=== PATIENT | female | born 1955 | race Caucasian/White ===

== ENCOUNTER → 2017-04-26 | Outpatient (CLI) | payer OTHER ==
--- NOTE | 2017-04-27 13:59 | MAMMOGRAPHY REPORT ---
BILATERAL DIGITAL SCREENING MAMMOGRAM TOMOSYNTHESIS WITH CAD: 04/26/2017 CLINICAL HISTORY: Routine screening. Patient has no complaints. TECHNIQUE: Breast tomosynthesis in addition to standard 2D mammography was performed. Current study was also evaluated with a Computer Aided Detection (CAD) system. COMPARISON: Comparison is made to exams dated: 04/24/2015 mammogram, 04/23/2014 mammogram, 12/20/2011 [facility], 07/29/2008, and 03/28/2007. BREAST COMPOSITION: There are scattered areas of fibroglandular density in both breasts. FINDINGS: There are stable benign coarse calcifications in the right breast. No suspicious mass, arc hitectural distortion or cluster of suspicious microcalcifications is seen. IMPRESSION: ACR BI-RADS CATEGORY 1: NEGATIVE There is no mammographic evidence of malignancy. A 1 year screening mammogram is recommended. The pa tient will receive written notification of the results. Approximately 10% of breast cancers are not detected with mammography. A negative mammographic report should not delay biopsy if a clinically suggestive mass is present. Celine Khan M.D. ay/:04/26/2017 15:25:41 Credit Control Administrator: Lilly Min, M, [facility] letter sent: Normal 1/2 BI-RADS Code: ACR BI-RADS Category 1: Negative
== END | disposition home or self-care (01) ==
LOC: C.MAMM 13:23
PROVIDERS: ATTEND Obstetrics & Gynecology
DX: Z12.31 Encounter for screening mammogram for malignant neoplasm of breast (principal)

== ENCOUNTER → 2017-07-26 | Outpatient (CLI) | payer OTHER ==
[2017-07-26 17:38] LABS: BASO % 0.4 %; BASO ABS # 0.03 K/uL (0-0.2); EOS % 0.9 %; EOS ABS # 0.08 K/uL (0-0.5); HEMATOCRIT 38.8 % (37-47); HEMOGLOBIN 13.3 g/dL (12.0-16.0); IG# 0.02 K/uL (0.00-0.02); LYMPH % 24.3 %; LYMPH ABS # 2.05 K/uL (1.2-3.4); MEAN CELL VOLUME 91.9 fL (80-100); MEAN CORPUSCULAR HEMOGLOBIN 31.5 pg (25-34); MEAN CORPUSCULAR HGB CONC 34.3 g/dl (32-36); MEAN PLATELET VOLUME 10.4 fL (7.4-10.4); MONO % 5.5 %; MONO ABS # 0.46 K/uL (0.11-0.59); NEUT % 68.7 %; NEUT ABS # 5.79 K/uL (1.4-6.5); PLATELET COUNT 291 K/uL (130-400); RED CELL DISTRIBUTION WIDTH CV 13.5 % (11.5-14.5); RED CELL DISTRIBUTION WIDTH SD 45.2 fL (36.4-46.3); WHITE BLOOD COUNT 8.43 K/uL (4.8-10.8)
[2017-07-26 18:26] LABS: ALBUMIN 3.7 gm/dl (3.4-5.0); ALT/SGPT 23 U/L (12-78); AST/SGOT 14 U/L (15-37); BLOOD UREA NITROGEN 15 mg/dl (7-18); CALCIUM 8.4 mg/dl (8.5-10.1); CARBON DIOXIDE 26 mmol/L (21-32); CREATININE 0.58 mg/dl (0.60-1.20); GLUCOSE 86 mg/dl (70-99); POTASSIUM 3.4 mmol/L (3.5-5.1); SODIUM 139 mmol/L (136-145)
[2017-07-26 18:35] LABS: ALKALINE PHOSPHATASE 85 U/L (45-117); CHOLESTEROL 208 mg/dl (0-200); LDL CHOLESTEROL CALCULATED 128 mg/dl; TOTAL PROTEIN 7.6 gm/dl (6.4-8.2)
== END | disposition home or self-care (01) ==
LOC: C.LABBFT 14:58
PROVIDERS: ATTEND Physician Assistant Medical
DX: M85.80 Other specified disorders of bone density and structure, unspecified site (principal); R63.5 Abnormal weight gain

== ENCOUNTER → 2017-08-05 | Outpatient (CLI) | payer OTHER ==
--- NOTE | 2017-08-05 12:18 | DIAGNOSTIC IMAGING REPORT ---
CT LUNG SCREENING, LOW DOSE WITH COMPUTER-AIDED DETECTION (CAD) CLINICAL HISTORY: PERSONAL HX OF TOBACCO USE COMPARISON STUDY: No previous studies for comparison. CT DOSE: 74.81 mGycm TECHNIQUE: Low-dose helical CT was acquired without intravenous contrast from lung apices to bases and reconstructed at 2.5 mm every 2 mm. CAD was utilized for this study. A dose lowering technique was utilized adhering to the principles of ALARA. FINDINGS: The central airways are patent. No pleural effusions. No pneumothorax. Small bibasilar densities favor subsegmental atelectasis. Mild emphysema. There are approximately 7 scattered subcentimeter indeterminate pulmonary nodule seen primarily within the lung bases. Dominant nodule within the right middle lobe on image 111 of 153 and is described below. Small fat-containing left-sided Bochdalek hernia. No mediastinal or hilar lymphadenopathy. Normal caliber thoracic aorta. No significant coronary artery calcification. The visualized unenhanced liver, spleen, and adrenal glands are unremarkable. Nodule 1 Category: 2 Nodule 1 Status: Baseline Nodule 1 Description: Solid Nodule 1 Lesion ID: 1 Nodule 1 Slice Number: 43 Nodule 1 Volume (mm3): 56 Nodule 1 Major Streeter mm: 5.0 Nodule 1 Minor Streeter mm: 5.0 IMPRESSION: Approximately 7 scattered subcentimeter pulmonary nodules seen predominantly within the lung bases. Recommend follow-up as described below. CAD FINDINGS: Overall Lung RADS Category: 2 Lung RADS Management Recommendation: Continue annual lung cancer screening. Lung RADS Follow Up Date: 2018-08-05 Lung RADS Nodule ID: 1 Electronically signed by: Solis iTlley M.D. 08/05/2017 12:16 PM Dictated Date/Time: 08/05/2017 12:06 PM
== END | disposition home or self-care (01) ==
LOC: C.CTS 11:42
PROVIDERS: ATTEND Internal Medicine
DX: Z87.891 Personal history of nicotine dependence (principal); R91.8 Other nonspecific abnormal finding of lung field

== ENCOUNTER → 2017-10-12 | Outpatient (CLI) | payer OTHER ==
[2017-10-12 17:37] LABS: HEMATOCRIT 38.5 % (37-47); HEMOGLOBIN 12.9 g/dL (12.0-16.0); MEAN CELL VOLUME 93.2 fL (80-100); MEAN CORPUSCULAR HEMOGLOBIN 31.2 pg (25-34); MEAN CORPUSCULAR HGB CONC 33.5 g/dl (32-36); MEAN PLATELET VOLUME 11.1 fL (7.4-10.4); PLATELET COUNT 266 K/uL (130-400); RED CELL DISTRIBUTION WIDTH CV 13.3 % (11.5-14.5); RED CELL DISTRIBUTION WIDTH SD 45.7 fL (36.4-46.3); WHITE BLOOD COUNT 8.29 K/uL (4.8-10.8)
[2017-10-12 17:39] LABS: ALBUMIN 3.6 gm/dl (3.4-5.0); ALKALINE PHOSPHATASE 75 U/L (45-117); ALT/SGPT 24 U/L (12-78); AST/SGOT 17 U/L (15-37); BLOOD UREA NITROGEN 12 mg/dl (7-18); CALCIUM 8.6 mg/dl (8.5-10.1); CARBON DIOXIDE 29 mmol/L (21-32); CREATININE 0.63 mg/dl (0.60-1.20); GLUCOSE 96 mg/dl (70-99); POTASSIUM 3.8 mmol/L (3.5-5.1); SODIUM 141 mmol/L (136-145); TOTAL PROTEIN 6.8 gm/dl (6.4-8.2)
[2017-10-12 18:24] LABS: BASO % 0.6 %; BASO ABS # 0.05 K/uL (0-0.2); EOS % 1.6 %; EOS ABS # 0.13 K/uL (0-0.5); IG# 0.05 K/uL (0.00-0.02); LYMPH % 34.6 %; LYMPH ABS # 2.87 K/uL (1.2-3.4); MONO % 6.8 %; MONO ABS # 0.56 K/uL (0.11-0.59); NEUT % 55.8 %; NEUT ABS # 4.63 K/uL (1.4-6.5)
== END | disposition home or self-care (01) ==
LOC: C.LABBFT 14:15
PROVIDERS: ATTEND Nurse Practitioner
DX: R19.7 Diarrhea, unspecified (principal)

== ENCOUNTER → 2017-10-13 | Outpatient (CLI) | payer OTHER | END | disposition home or self-care (01) | LOC: C.LABBFT 11:30 | PROVIDERS: ATTEND Nurse Practitioner | DX: R19.7 Diarrhea, unspecified (principal) ==

== ENCOUNTER 2019-12-06 05:22 | Observation (INO) ==
--- NOTE | 2019-11-19 15:50 | PAT Medication Instructions ---
Medication Instructions Date of Service November 19, 2019 Home Medications Medication Instructions Recorded fluoxetine 40 mg capsule 40 mg PO QAM #90 cap 08/31/19 ascorbic acid (vitamin C) [Vitamin C] 1 g PO DAILY calcium phosphate-vitamin D3 [Citracal + D3 (calcium phos)] 2 tab PO DAILY coQ10 (ubiquinol) 400 mg PO DAILY Centrum Silver Women] 1 tab PO DAILY fluoxetine 40 mg capsule 40 mg PO QAM STOP taking 2 weeks before surgery (or as soon as possible if surgery is within 2 weeks) coQ10 (ubiquinol) 400 mg PO DAILY DO NOT take the morning of surgery ascorbic acid (vitamin C) [Vitamin C] 1 g PO DAILY calcium phosphate-vitamin D3 [Citracal + D3 (calcium phos)] 2 tab PO DAILY Centrum Silver Women] 1 tab PO DAILY Take morning of surgery With a small sip of water, OTHERWISE NOTHING TO EAT OR DRINK AFTER MIDNIGHT: fluoxetine 40 mg capsule 40 mg PO QAM Other Notes If you have any questions please call us at [phone] or [phone] or [phone] or [phone]
--- NOTE | 2019-11-20 14:46 | Anesthesiology Consultation ---
Date of Service November 20, 2019 Assessment & Plan (1) Encounter for pre-operative examination: - PCP office visit: 11/20/19: "Patient here for preop clearance for right AGNES scheduled on 12/06/19. Her health has been good. She is clinically stable. compli ant with medications. She will have preop testing done later today. Will review preop testing before clearing her for surgery." Awaiting final PCP clearance ([facility]). - Per assessment on 11/19: Travel screen negative. No known COVID-19 positive contacts or current COVID-19 related symptoms. Surgeon arranging preop COVID testing. Awaiting results. Chart Review Chart Review: Patient seen in Pre Admission Testing Teaching & Discussion Pre-Anesthesia Teaching/Discussion Notes: Instructed NPO after midnight before surgery,except medications with 15 cc of water. Medication instructions provided according to the PAT guidelines. History Surgery Operation Date: 12/06/19 07:15 Proposed Procedures p Right Total Hip Arthroplasty - Aram Schwartz MD Height/Weight Height: 5 ft 8 in Weight: 80.3 kg Allergies Allergy/AdvReac Type Severity Reaction Status Date / Time med Allergy Intermediate nausea, Verified 11/20/19 15:42 headache Sulfa (Sulfonamide Allergy Intermediate nausea, Verified 11/20/19 15:42 Antibiotics) headache venlafaxine [From Effexor] AdvReac Intermediate difficulty Verified 11/20/19 15:42 concentrating, loss of focus Medications Home Medications Medication Instructions Recorded Confirmed Last Taken ascorbic acid (vitamin C) [Vitamin 1 g PO DAILY 06/13/19 11/20/19 Unknown C] calcium phosphate-vitamin D3 2 tab PO DAILY 06/13/19 11/20/19 Unknown [Citracal + D3 (calcium phos)] coQ10 (ubiquinol) 400 mg PO DAILY 06/13/19 11/20/19 Unknown aoreqsst-rnm-pgut-FA-lutein 1 tab PO DAILY 06/13/19 11/20/19 Unknown [Centrum Silver Women] fluoxetine 40 mg capsule 40 mg PO QAM #90 cap 08/31/19 11/20/19 Unknown Past Medical History Medical History Anxiety Osteoarthritis Exercise / Class Metabolic Activity II 4-5 Yardwork/Stairs/Walk up hill (one flight of stairs (no chest pain/no sob)) Past Family History Family History Father Colon cancer Brother Polyp of sigmoid colon Mother CKD (chronic kidney disease) Sister Seizures Past Surgical History Surgical History H/O laparoscopy R/T FERTILITY PROBLEMS History of section History of colonoscopy History of surgery on wrist LEFT/RT FX WRIST REPAIR History of tonsillectomy and adenoidectomy Hx of abdominal surgery D/T ECTOPIC Uterine fibroid [place] teeth removed Past Anesthesia History No Family Hx of Anesthesia Complications and Other (awareness with colonoscopy, no similar issues with other surgeries/anesthesia) History of PONV No Hx of PONV and No Hx of Motion Sickness Social History Smoking Status: Former smoker tobacco type: cigarettes Do You Dip or Chew Tobacco: No Smoking End Date: Quit 2013 (hx 20 cigarettes/day x 30+ years) Hx Alcohol Use: No (Recovering alcoholic, 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 Physical Exam Vital Signs VITALS BP 110/73 P 68 TEMP 98.3 SP02 96%RA RESP 16 PHYSICAL Full neck and c-spine range of motion. Full TMJ range of motion. TMD 3 finger breaths Mallampati Score 2 Dentition: intact, + implant/+ crown (upper side teeth) Lungs: clear throughout to auscultation Cardiac: regular rate and rhythm, no murmurs noted Spine: normal Carotid arteries: negative bruit Extremities: no edema Testing Laboratory Results 11/20/19 15:22 11/20/19 15:22 PT 10.5 Seconds (9.0-12.0) 11/20/19 15: INR 1.0 (0.9-1.1) 11/20/19 15: Hemoglobin A1c 5.5 % (4.5-5.6) 11/20/19 15:22 Urine Color Yellow 11/20/19 Unknown Urine Appearance Clear (Clear) 11/20/19 Unknown Urine pH 6.0 (4.5-7.5) 11/20/19 Unknown Ur Specific [place] 1.018 (1.000-1.030) 11/20/19 Unknown Urine Protein Negative (Negative) 11/20/19 Unknown Urine Glucose (UA) Negative (Negative) 11/20/19 Unknown Urine Ketones Negative (Negative) 11/20/19 Unknown Urine Nitrite Negative (Negative) 11/20/19 Unknown Ur Leukocyte Esterase 2+ (Negative) H 11/20/19 Unknown Urine WBC (Auto) 5-10 /hpf (0-5) H 11/20/19 Unknown Urine RBC (Auto) 0-4 /hpf (0-4) 11/20/19 Unknown U Hyaline Cast (Auto) 1-5 /lpf (0-5) 11/20/19 Unknown U Epithel Cells (Auto) >30 /lpf (0-5) H 11/20/19 Unknown Urine Bacteria (Auto) Negative (Negative) 11/20/19 Unknown Blood Type A Positive 11/20/19 15:22 Antibody Screen NEGATIVE 11/20/19 15:22 Electrocardiogram Date: 11/20/19 NSR at 63bpm. NS TWA.
[2019-11-20 16:01] LABS: Basophils # (auto) 0.03 K/uL (0-0.2); Basophils % (auto) 0.4 %; Eosinophils # (auto) 0.12 K/uL (0-0.5); Eosinophils % (auto) 1.5 %; Hematocrit (blood only) 39.3 % (37-47); Hemoglobin 13.4 g/dL (12.0-16.0); Immature Granulocytes # (auto) 0.02 K/uL (0.00-0.02); Immature Granulocytes % (auto) 0.3 %; Lymphocytes # (auto) 2.14 K/uL (1.2-3.4); Lymphocytes % (auto) 27.5 %; Mean Corpuscular Hgb Conc 34.1 g/dL (32-36); Mean Corpuscular Volume 93.8 fL (80-100); Mean Platelet Volume 10.5 fL (7.4-10.4); Monocytes # (auto) 0.42 K/uL (0.11-0.59); Monocytes % (auto) 5.4 %; Neutrophils # (auto) 5.04 K/uL (1.4-6.5); Neutrophils % (auto) 64.9 %; Platelet Count 277 K/uL (130-400); RDW Coefficient of Variation 12.9 % (11.5-14.5); RDW Standard Deviation 44.5 fL (36.4-46.3); Red Blood Count 4.19 M/uL (4.2-5.4); White Blood Count 7.77 K/uL (4.8-10.8)
[2019-11-20 16:03] LABS: Appearance Urine Clear (Clear); Bacteria Urine Automated Negative (Negative); Bilirubin Urine Negative (Negative); Blood Urine Negative (Negative); Color Urine Yellow; Epithelial Cell Urine Auto >30 /lpf (0-5); Glucose Urine UA Negative (Negative); Ketones Urine Negative (Negative); Leukocyte Esterase Urine 2+ (Negative); Nitrite Urine Negative (Negative); Protein Urine Negative (Negative); RBC Urine Automated 0-4 /hpf (0-4); Specific Gravity Urine 1.018 (1.000-1.030); Urobilinogen Urine Negative (Negative)
[2019-11-20 16:09] LABS: Prothrombin Time 10.5 Seconds (9.0-12.0)
[2019-11-20 16:12] LABS: Potassium 3.7 mmol/L (3.5-5.1)
[2019-11-20 16:13] LABS: BUN Creatinine Ratio 28.1 (10-20); Calcium 9.8 mg/dl (8.5-10.1); Creatinine Clr Calc Pharmacy 98.5 ml/min; Est GFR (African American) 109.5; Est GFR (Non-African American) 94.5
--- NOTE | 2019-11-21 06:05 | Electrocardiogram Report ---
Test Reason : Blood Pressure : / mmHG Vent. Rate : 063 BPM Atrial Rate : 063 BPM P-R Int : 136 ms QRS Dur : 096 ms QT Int : 418 ms P-R-T Axes : 063 070 083 degrees QTc Int : 427 ms Normal sinus rhythm Nonspecific T wave abnormality Abnormal ECG No previous ECGs available Confirmed by Rene Feliciano ([id number]) on 11/21/2019 6:05:04 AM Referred By: Aram Schwartz Confirmed By:Rene Feliciano
[2019-11-21 09:33] LABS: Estimated Average Glucose 111 mg/dl; Hemoglobin A1C 5.5 % (4.5-5.6)
--- NOTE | 2019-11-22 13:30 | History & Physical Report ---
Date of Service November 22, 2019 Assessment & Plan (1) Osteoarthritis of right hip: PRE-OP Diagnosis: Right hip osteoarthritis Planned Procedure: Right total hip arthroplasty Plan: Patient is scheduled to undergo this procedure at the [facility] with Dr. Aram Schwartz on December 06, 2019. Risks and complications of the procedure such as: Infection, bleeding, pain, scarring, nerve and blood vessel damage, weakness, wound problems, incomplete relief of symptoms, stiffness, hardware failure, hardware loosening, wear, fracture, tendon or ligament injury, dislocation, leg length inequality, blood clots, embolism, heart attack, stroke and were explained the patient had a visit today by Dr. Schwartz. Informed consent form of the procedure was obtained. Patient also understands the risks of proceeding with surgical intervention during COVID-19 pandemic. Patient is currently asymptomatic and understands that she will be tested prior to the procedure. Patient states she met with her primary care provider Dr. Moody's ANIRUDH this morning, and received preoperative clearance. She is scheduled to meet with anesthesia after her appointment in our clinic today. While at the hospital she will obtain a CBC with differential, complete metabolic panel, PT/INR, blood type and screen, urinalysis, urine culture and sensitivity, EKG, hemoglobin A1c and a nasal culture for MRSA. During her appointment today we discussed total hip precautions, we went over the total hip packet, talked about discharge planning, antibiotic use following total joint surgery, purchasing a hip kit and obtaining a walker, complaining raised toilet seats in her bathrooms, we also talked about lectures offered by [facility] via zoom. I advised patient she will be discharged from the hospital on oral pain and anti-inflammatory medication as well as aspirin for DVT prophylaxis. Patient will be scheduled for 2-week postoperative follow-up with Aparna Sotomayor PA-C on December 25, 2019 at 1045. Patient verbalized understanding of all information provided during today's visit. She thanked us for the care that she received. Patient states she has questions or concerns prior to her surgery, she will contact clinic. History of Present Illness Chief Complaint: Right Hip Pain Primary Care Provider: Pancho Moody MD History of Present Illness (including history relevant to procedure): This 64-year-old female presents the clinic today for preoperative history and physical. Patient has a longstanding history of bilateral hip pain with the right being greater than that of the left. Patient states this is been ongoing for the past 10 to 12 years and over the past several months has become persiste nt. Patient refers most of her pain to the anterior groin of the right hip. Pain is exacerbated when transitioning from a seated to a standing position. She states that at times it does affect her gait and as well as her activities of daily living. Patient states she uses Advil to control her pain which is only minimally effective. Patient states that it is time to have her issue dealt with surgically. 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 She denies tobacco or illicit drug use Family history: Cancer Current Home Meds: (Last Updated 11/19 13:54) and vitamin D combination (Caltrate 600 + D) 1 tab PO Daily(FLUoxetine 40 mg oral capsule) 40 mg PO Daily multivitamin 1 tab PO Daily(CoQ10) Initial Wt: 11/19 80.3 kg 177 lb Allergies Allergy/AdvReac Type Severity Reaction Status Date / Time med Allergy Intermediate nausea, Verified 11/20/19 15:42 headache Sulfa (Sulfonamide Allergy Intermediate nausea, Verified 11/20/19 15:42 Antibiotics) headache venlafaxine [From Effexor] AdvReac Intermediate difficulty Verified 11/20/19 15:42 concentrating, loss of focus Home Medications Home Medications Medication Instructions Recorded Confirmed Type ascorbic acid (vitamin C) [Vitamin 1 g PO DAILY 06/13/19 11/20/19 History C] calcium phosphate-vitamin D3 2 tab PO DAILY 06/13/19 11/20/19 History [Citracal + D3 (calcium phos)] coQ10 (ubiquinol) 400 mg PO DAILY 06/13/19 11/20/19 History bmvmcokp-mjk-kzml-FA-lutein 1 tab PO DAILY 06/13/19 11/20/19 History [Centrum Silver Women] fluoxetine 40 mg capsule 40 mg PO QAM #90 cap 08/31/19 11/20/19 Rx Past Med/Surg History Medical History Anxiety Osteoarthritis Surgical History H/O laparoscopy R/T FERTILITY PROBLEMS History of section History of colonoscopy History of surgery on wrist LEFT/RT FX WRIST REPAIR History of tonsillectomy and adenoidectomy Hx of abdominal surgery D/T ECTOPIC Uterine fibroid [place] teeth removed Family History Father Colon cancer Brother Polyp of sigmoid colon Mother CKD (chronic kidney disease) Sister Seizures Social History Smoking Status: Former smoker Smoking End Date: Quit 2013 (hx 20 cigarettes/day x 30+ years); Second Hand Exposure: Yes; Do You Dip or Chew Tobacco: No; Tobacco Cessation Education Requested by Patient: No Hx Alcohol Use: No (Recovering alcoholic, 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) Hx Substance Use: No Preferred Language: [place] Communication Ability: Effective [employer]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 Extraocular movements are intact Neck: Deferred due to COVID-19 precautions Cardiac: Regular rate and rhythm with no murmurs or gallops appreciated Lungs: Clear to auscultation throughout with no wheezing, rales or rhonchi Abdomen: Nonobese, nondistended, nontender with normal active bowel sounds Extremities: She has limited range of motion of the right hip compared with the left with flexion to 85 degrees, external rotation of 35 degrees and internal rotation of -15 degrees. She has a positive Stinchfield test. No tenderness over the greater trochanter. Distally neurovascularly intact with palpable pulses. Neuro: Cranial nerves II through XII are intact no motor or sensory deficit Skin: Normal in appearance with no open skin areas or discharge Results & Data ([facility]) Laboratory Results Lab Results 11/20/19 11/20/19 11/20/19 Range/Units 15:22 15:22 15:22 WBC 7.77 (4.8-10.8) K/uL RBC 4.19 L (4.2-5.4) M/uL Hgb 13.4 (12.0-16.0) g/dL Hct 39.3 (37-47) % MCV 93.8 (80-100) fL MCH 32.0 (25-34) pg MCHC 34.1 (32-36) g/dL RDW Std Deviation 44.5 (36.4-46.3) fL RDW Coeff of Diana 12.9 (11.5-14.5) % Plt Count 277 (130-400) K/uL MPV 10.5 H (7.4-10.4) fL Immature Gran % (Auto) 0.3 % Neut % (Auto) 64.9 % Lymph % (Auto) 27.5 % [place] % (Auto) 5.4 % Eos % (Auto) 1.5 % Baso % (Auto) 0.4 % Neut # (Auto) 5.04 (1.4-6.5) K/uL Lymph # (Auto) 2.14 (1.2-3.4) K/uL [place] # (Auto) 0.42 (0.11-0.59) K/uL Eos # (Auto) 0.12 (0-0.5) K/uL Baso # (Auto) 0.03 (0-0.2) K/uL Immature Gran # (Auto) 0.02 (0.00-0.02) K/uL PT 10.5 (9.0-12.0) Seconds INR 1.0 (0.9-1.1) Sodium 140 (136-145) mmol/L Potassium 3.7 (3.5-5.1) mmol/L Chloride 105 (98-107) mmol/L Carbon Dioxide 29 (21-32) mmol/L Anion Gap 6.0 (3-11) BUN 18 (7-18) mg/dl Creatinine 0.65 (0.6-1.2) mg/dl Est Cr Clr Drug Dosing 98.5 ml/min Est GFR ( Amer) 109.5 Est GFR (Non-Af Amer) 94.5 BUN/Creatinine Ratio 28.1 H (10-20) Glucose 92 (70-99) mg/dl Estimat Average Glucose mg/dl Hemoglobin A1c (4.5-5.6) % Calcium 9.8 (8.5-10.1) mg/dl Urine Color Urine Appearance (Clear) Urine pH (4.5-7.5) Ur Specific [place] (1.000-1.030) Urine Protein (Negative) Urine Glucose (UA) (Negative) Urine Ketones (Negative) Urine Blood (Negative) Urine Nitrite (Negative) Urine Bilirubin (Negative) Urine Urobilinogen (Negative) Ur Leukocyte Esterase (Negative) Urine WBC (Auto) (0-5) /hpf Urine RBC (Auto) (0-4) /hpf U Hyaline Cast (Auto) (0-5) /lpf U Epithel Cells (Auto) (0-5) /lpf Urine Bacteria (Auto) (Negative) Nasal Screen MRSA (PCR) (Negative) Blood Type Antibody Screen 11/20/19 11/20/19 11/20/19 Range/Units 15:22 15:22 Unknown WBC (4.8-10.8) K/uL RBC (4.2-5.4) M/uL Hgb (12.0-16.0) g/dL Hct (37-47) % MCV (80-100) fL MCH (25-34) pg MCHC (32-36) g/dL RDW Std Deviation (36.4-46.3) fL RDW Coeff of Diana (11.5-14.5) % Plt Count (130-400) K/uL MPV (7.4-10.4) fL Immature Gran % (Auto) % Neut % (Auto) % Lymph % (Auto) % [place] % (Auto) % Eos % (Auto) % Baso % (Auto) % Neut # (Auto) (1.4-6.5) K/uL Lymph # (Auto) (1.2-3.4) K/uL [place] # (Auto) (0.11-0.59) K/uL Eos # (Auto) (0-0.5) K/uL Baso # (Auto) (0-0.2) K/uL Immature Gran # (Auto) (0.00-0.02) K/uL PT (9.0-12.0) Seconds INR (0.9-1.1) Sodium (136-145) mmol/L Potassium (3.5-5.1) mmol/L Chloride (98-107) mmol/L Carbon Dioxide (21-32) mmol/L Anion Gap (3-11) BUN (7-18) mg/dl Creatinine (0.6-1.2) mg/dl Est Cr Clr Drug Dosing ml/min Est GFR ( Amer) Est GFR (Non-Af Amer) BUN/Creatinine Ratio (10-20) Glucose (70-99) mg/dl Estimat Average Glucose 111 mg/dl Hemoglobin A1c 5.5 (4.5-5.6) % Calcium (8.5-10.1) mg/dl Urine Color Yellow Urine Appearance Clear (Clear) Urine pH 6.0 (4.5-7.5) Ur Specific [place] 1.018 (1.000-1.030) Urine Protein Negative (Negative) Urine Glucose (UA) Negative (Negative) Urine Ketones Negative (Negative) Urine Blood Negative (Negative) Urine Nitrite Negative (Negative) Urine Bilirubin Negative (Negative) Urine Urobilinogen Negative (Negative) Ur Leukocyte Esterase 2+ H (Negative) Urine WBC (Auto) 5-10 H (0-5) /hpf Urine RBC (Auto) 0-4 (0-4) /hpf U Hyaline Cast (Auto) 1-5 (0-5) /lpf U Epithel Cells (Auto) >30 H (0-5) /lpf Urine Bacteria (Auto) Negative (Negative) Nasal Screen MRSA (PCR) (Negative) Blood Type A Positive Antibody Screen NEGATIVE 11/20/19 Range/Units Unknown WBC (4.8-10.8) K/uL RBC (4.2-5.4) M/uL Hgb (12.0-16.0) g/dL Hct (37-47) % MCV (80-100) fL MCH (25-34) pg MCHC (32-36) g/dL RDW Std Deviation (36.4-46.3) fL RDW Coeff of Diana (11.5-14.5) % Plt Count (130-400) K/uL MPV (7.4-10.4) fL Immature Gran % (Auto) % Neut % (Auto) % Lymph % (Auto) % [place] % (Auto) % Eos % (Auto) % Baso % (Auto) % Neut # (Auto) (1.4-6.5) K/uL Lymph # (Auto) (1.2-3.4) K/uL [place] # (Auto) (0.11-0.59) K/uL Eos # (Auto) (0-0.5) K/uL Baso # (Auto) (0-0.2) K/uL Immature Gran # (Auto) (0.00-0.02) K/uL PT (9.0-12.0) Seconds INR (0.9-1.1) Sodium (136-145) mmol/L Potassium (3.5-5.1) mmol/L Chloride (98-107) mmol/L Carbon Dioxide (21-32) mmol/L Anion Gap (3-11) BUN (7-18) mg/dl Creatinine (0.6-1.2) mg/dl Est Cr Clr Drug Dosing ml/min Est GFR ( Amer) Est GFR (Non-Af Amer) BUN/Creatinine Ratio (10-20) Glucose (70-99) mg/dl Estimat Average Glucose mg/dl Hemoglobin A1c (4.5-5.6) % Calcium (8.5-10.1) mg/dl Urine Color Urine Appearance (Clear) Urine pH (4.5-7.5) Ur Specific [place] (1.000-1.030) Urine Protein (Negative) Urine Glucose (UA) (Negative) Urine Ketones (Negative) Urine Blood (Negative) Urine Nitrite (Negative) Urine Bilirubin (Negative) Urine Urobilinogen (Negative) Ur Leukocyte Esterase (Negative) Urine WBC (Auto) (0-5) /hpf Urine RBC (Auto) (0-4) /hpf U Hyaline Cast (Auto) (0-5) /lpf U Epithel Cells (Auto) (0-5) /lpf Urine Bacteria (Auto) (Negative) Nasal Screen MRSA (PCR) Negative (Negative) Blood Type Antibody Screen Diagnostic Findings Studies (relevant to the procedure): X-rays done include AP pelvis, cross-table lateral and false profile view of the right hip. These demonstrate end-stage os teoarthritis of the right hip with near-complete joint space loss, large peripheral osteophytes and subchondral sclerosis.
[2019-12-06] MEDS ORDERED: TRANEXAMIC ACID 1,000 MG **IV Intra-op IV SCH (06:00)
[2019-12-06] MEDS ORDERED: TRAMADOL HCL 50 MG TABLET PO SCH (06:00)
[2019-12-06] MEDS ORDERED: FAMOTIDINE 20 MG TAB PO SCH (06:00)
[2019-12-06] MEDS ORDERED: CEFAZOLIN 2000MG 2,000 MG/15 ML SYR IV SCH (06:00)
[2019-12-06] MEDS ORDERED: dexAMETHasone 4 MG TAB PO SCH (06:00)
[2019-12-06] MEDS ORDERED: METOCLOPRAMIDE HCL 10 MG TABLET PO SCH (06:00)
[2019-12-06] MEDS ORDERED: LR 60ML/HR IV SCH (06:00)
[2019-12-06] MEDS ORDERED: ACETAMINOPHEN 500 MG TAB PO SCH (06:00)
[2019-12-06] MEDS ORDERED: LR 500ML BOLUS, THEN 15ML/HR IV SCH (06:00)
[2019-12-06] MEDS ORDERED: TRANEXAMIC ACID 1,000 MG **IV Pre-op IV SCH (06:00)
[2019-12-06] MEDS ORDERED: ROPIVACAINE 0.5% HCL/PF 150 MG, BUPIVACAINE 0.5% MPF 30 ML, EPINEPHrine 0.15 MG, Ketoro... INFIL SCH (06:00)
[2019-12-06] MEDS ORDERED: BUPIVACAINE 0.5 % 5 MG/1 ML PF 10ML VIAL ONE (06:20)
[2019-12-06] MEDS ORDERED: PROMETHAZINE HCL 12.5 MG in SODIUM CHLORIDE 0.9% 50 ML IV PRN (06:52)
[2019-12-06] MEDS ORDERED: ePHEDrine sulfate 50 MG/ML AMP IV PRN (06:52)
[2019-12-06] MEDS ORDERED: HYDROmorphone INJ 2 MG/ML SYR/VIAL IV PRN (06:52)
[2019-12-06] MEDS ORDERED: fentaNYL citrate 100 MCG/2 ML VIAL IV PRN (06:52)
[2019-12-06] MEDS ORDERED: ATROPINE SULFATE 0.1 MG/ML 10ML SYR IV PRN (06:52)
[2019-12-06] MEDS ORDERED: ONDANSETRON INJ 2 MG/ML 2 ML VIAL IV PRN ×2 (06:52→09:14)
[2019-12-06] MEDS ORDERED: ORTHO JOINT ANESTHETIC ONE (06:52)
[2019-12-06] MEDS ORDERED: fentaNYL citrate 100 MCG/2 ML VIAL ONE (07:02)
[2019-12-06] MEDS ORDERED: MIDAZOLAM HCL 1 MG/ML 2ML VIAL ONE ×2 (07:02→07:39)
--- NOTE | 2019-12-06 07:12 | History & Physical Bridge Note ---
Date of Service December 06, 2019 History & Physical Bridge Note I have examined the patient, reviewed the History & Physical and in the interval since the performance of the History & Physical I have noted the following changes of clinical significance: no changes noted
[2019-12-06] MEDS ORDERED: PROPOFOL IV EMULSION 10 MG/ML 20 ML VIAL IV ONE (07:52)
[2019-12-06] MEDS ORDERED: DEXAMETHASONE SOD INJ 4 MG/ML VIAL ONE (07:52)
[2019-12-06] MEDS ORDERED: ONDANSETRON INJ 2 MG/ML 2 ML VIAL ONE (07:52)
[2019-12-06] MEDS ORDERED: LIDOCAINE HCL 2% 2 ML VIAL/AMP(20MG/ML) INFIL ONE (07:52)
--- NOTE | 2019-12-06 09:08 | Operative Report ---
Post Operative Report Pre & Post Diagnosis Operation Date: 12/06/19 07:15 Pre-Op Diagnosis: Right Hip Osteoarthritis Post-Op Diagnosis: Right Hip Osteoarthritis I identified the patient and participated in the time-out.: Yes Procedure Operation Date: 12/06/19 07:15 Actual Procedures p Right Total Hip Arthroplasty(Right) - Aram Schwartz MD Surgeon Aram Schwartz MD Purchasing/Receiving Artemio Pierre MD and TAMAR Meza PA-C Estimated Blood Loss 100 Findings Consistent with Post-Op Diagnosis Specimens Femoral head Anesthesia Type Spinal MAC Complications none Disposition Accompanied Patient To Recovery: No Disposition: Recovery Room Indications 64-year-old female with right hip pain refractory to conservative management. X-rays demonstrate [id number] arthritis. I had a long discussion with her abo ut risks and benefits of surgery, alternatives to surgery and expected outcomes. After reviewing all these patient elected proceed with surgery. All questions were answered. Informed consent was signed. Description of Procedure Patient was identified in the preoperative holding area and the surgical site, right hip, was marked. A spinal anesthetic was placed, then the patient was brought back to the main operating room, placed in the operating table and moved into the lateral decubitus position. Axillary roll was placed. All bony prominences were padded. Perioperative antibiotics and tranexamic acid 1 gram IV were administered. Operative extremity was prepped and draped in the normal sterile fashion. Prior to incision a multidisciplinary timeout was called. All in the room were in agreement. We began by making an incision for a posterior approach to the hip. We dissected down through subcutaneous tissues to the level of the fascia. The fascia was incised in line with the incision. Charnley bow was placed. The trochanteric bursa was excised. The piriformis and short external rotators were dissected off the posterior aspect of the hip. A box cut was made in the capsule. The femoral head was dislocated. The femoral neck cut was made at our preoperative template. The acetabulum was then exposed. The labrum was sharply excised. Contents of the cotyloid fossa were removed with electrocautery. We then began reaming at a size 8 mm less than our preoperative template. We reamed up by 1 [address] the way up to a size 52 mm cup. This gave us good bleeding cancellus bone circumferentially. The acetabulum was then irrigated out and dried. The real Gillett Gription cup was then impacted down into position with 45 degrees of lateral opening and 25 degrees of anteversion. A single cancellous bone screw was placed up into the ilium. Excellent fixation was obtained. An Altrx polyethylene liner for a 32 mm femoral head was then impacted into the shell. The locking mechanism was checked to ensure that it had engaged which it had. Next we turned our attention to the femur. The lateral neck was removed with a box osteotome. Intramedullary guide was used followed by the lateralizing reamer. We then reamed up to a size 6 [place] stem. We then broached all the way up to a size 6. We began trialing with a high offset neck and a +1 head. Hip was reduced. Leg lengths were symmetric. The hip was stable in extension and external rotation, and stable in the sleeper position. At 90 degrees of hip flexion the hip could be internally rotated 50 degrees before levering out of the cup. I was very happy with the stability exam. Therefore the hip was dislocated and the femoral trial was removed. The femoral canal was irrigated and dried. The real size 6 high offset [place] femoral stem was opened up. This was impacted down into position. It sat at the same level as the femoral trial. Therefore the 32 mm ceramic femoral head with a +1 mm offset was opened up and gently impacted down onto the trunnion. The hip was atraumatically reduced. Another 1 gram of IV tranexamic acid was started prior to closure. The wound was irrigated out with sterile Betadine solution. The periarticular injection cocktail was then placed. The short external rotators, piriformis, and posterior capsule were repaired through drill holes in the greater trochanter using #2 Vicryl. The fascia was run with a looped #1 PDS. The subcutaneous layer was closed with #1 PDS. The dermal layer was closed with 2-0 Vicryl. Zip line was used for the skin followed by a Silverlon dressing. A compressive dressing was then placed. The patient was then rolled supine. Leg lengths were rechecked and were symmetric. An abduction pillow was placed. Sedation was lifted and the patient was transferred to recovery room in stable condition. Summary of implants: Depuy Gillett Gription Acetabular Shell Sector Cup, 52 mm outer diameter Gillett Cancellous bone screw, 6.5 x 35 mm Gillett Altrx Polyethylene Acetabular Liner, Neutral, with a 32 mm inner diameter DePuy [place] Femoral stem with Porocoat, 12/14 taper, size 6 high offset 32 mm ceramic femoral head with +1 offset Postoperative course: Patient will be admitted to the hospital from the recovery room. Patient will be weightbearing as tolerated with posterior hip precautions. Aspirin for DVT prophylaxis I attest to the content of the Intraoperative Record and any orders documented therein. Any exceptions are noted below.
[2019-12-06] MEDS ORDERED: METOCLOPRAMIDE HCL INJ 5 MG/ML 2 ML VIAL IV PRN (09:14)
[2019-12-06] MEDS ORDERED: ALUMINUM/MAGNESIUM SUSP 30 ML UDC PO PRN (09:14)
[2019-12-06] MEDS ORDERED: bisacodyL 10 MG SUPP PR PRN (09:14)
[2019-12-06] MEDS ORDERED: NALOXONE HCL 0.4 MG/1 ML VIAL/CARP IV PRN (09:14)
[2019-12-06] MEDS ORDERED: DiphenhydrAMINE HCL 50 MG/ML VIAL IV PRN (09:14)
[2019-12-06] MEDS ORDERED: MAGNESIUM HYDROXIDE SUSP 30 ML UDC PO PRN (09:14)
--- NOTE | 2019-12-06 09:14 | Operative Report ---
Post Operative Report Pre & Post Diagnosis Operation Date: 12/06/19 07:15 Pre-Op Diagnosis: Right Hip Osteoarthritis Post-Op Diagnosis: Right Hip Osteoarthritis I identified the patient and participated in the time-out.: Yes Procedure Operation Date: 12/06/19 07:15 Actual Procedures p Right Total Hip Arthroplasty(Right) - Aram Schwartz MD Surgeon Aram Schwartz MD [employer] Artemio Pierre MD and TAMAR Meza PA-C Estimated Blood Loss 100 Findings Consistent with Post-Op Diagnosis Specimens femoral head Complications none Disposition Accompanied Patient To Recovery: Yes Disposition: Recovery Room Description of Procedure I was present during the entire case assisting with positioning, prepping, draping, retraction, wound closure and dressing application. Fellow was present and I served as an extra set of hands during the case. Please see Dr. Schwartz procedure note for speciifcs. I attest to the content of the Intraoperative Record and any orders documented therein. Any exceptions are noted below.
--- NOTE | 2019-12-06 09:48 | Anesthesiology Progress Note ---
Date of Service December 06, 2019 Anesthesia Post Procedure Vital Signs Vital Signs: Temp Pulse Pulse Resp BP BP Pulse Ox 12/06/19 09:40 62 14 104/63 99 12/06/19 09:30 61 16 104/58 L 100 12/06/19 09:20 62 14 109/61 100 12/06/19 09:12 36.2 C L 63 16 109/66 100 12/06/19 05:59 36.9 C 76 18 132/70 96 Transfer of Care Handoff Completed per policy Notes Mental Status: alert / awake / arousable and participated in evaluation Patient Amnestic to Procedure: Yes Nausea / Vomiting: adequately controlled Pain: adequately controlled Airway Patency, RR, SpO2: stable & adequate BP & HR: stable & adequate Hydration State: stable & adequate Anesthetic Complications: no major complications apparent and Pt Satisfied with anesthetic care
--- NOTE | 2019-12-06 10:33 | XRay Report ---
XR hip 1V RT w pelvis HISTORY: 64 years-old Female IN PACU - A/P PELVIS and LATERAL HIP right hip total joint arthroplast y COMPARISON: Pelvis radiograph 11/20/2019 TECHNIQUE: AP view the pelvis with crosstable lateral view of the right hip FINDINGS: There is at least moderate left hip osteoarthritis. Right hip total joint arthroplasty demonstrates s atisfactory alignment without acute fracture or expected retained foreign body. Expected postsurgical soft tissue swelling and deep tissue air. Phleboliths of the pelvis. IMPRESSION: Right hip total arthroplasty with expected postoperative changes. ACT 112: Negative or not required by law. The above report was generated using voice recognition software. It may contain grammatical, syntax o r spelling errors. Electronically signed by: Lloyd Pham M.D. 12/06/2019 10:32 AM
[2019-12-06] MEDS ORDERED: IBUPROFEN 200 MG TAB PO PRN (10:36)
--- NOTE | 2019-12-06 11:35 | Operative Report ---
Post Operative Report Pre & Post Diagnosis Operation Date: 12/06/19 07:15 Pre-Op Diagnosis: Right Hip Osteoarthritis Post-Op Diagnosis: Right Hip Osteoarthritis I identified the patient and participated in the time-out.: Yes Procedure Operation Date: 12/06/19 07:15 Actual Procedures p Right Total Hip Arthroplasty(Right) - Aram Schwartz MD Surgeon Aram Mercado MD Cathode Builder Artemio Pierre MD and TAMAR Meza PA-C Estimated Blood Loss 100 Findings Consistent with Post-Op Diagnosis Specimens Femoral head Drains None Anesthesia Type Spinal MAC Complications none Disposition Accompanied Patient To Recovery: Yes Disposition: Recovery Room Indications Severe right hip osteoarthritis Description of Procedure As per doctor Mercado's note I assisted in prepping and draping instruments handling certain parts of the procedure and wound closure I attest to the content of the Intraoperative Record and any orders documented therein. Any exceptions are noted below.
[2019-12-06] MEDS: KETOROLAC TROMETHAMINE 15 MG/ML VIAL IV SCH ×3 (12:55→22:03)
[2019-12-06] MEDS: SODIUM CHLORIDE 0.9% 1000ML 1,000 ML IV SCH ×2 (12:55→22:02)
[2019-12-06] MEDS: ACETAMINOPHEN 500 MG TAB PO SCH ×2 (13:42→22:03)
[2019-12-06] MEDS ORDERED: TRANEXAMIC ACID / 0.7% NACL 1,000 MG/100 ML BAG IV SCH (15:15)
[2019-12-06] MEDS: Scopolamine CHECK PATCH PLACEMENT SCH ×2 (15:21→23:20)
[2019-12-06] MEDS: CEFAZOLIN 2000MG 2,000 MG/15 ML SYR IV SCH ×2 (16:07→23:20)
[2019-12-06] MEDS: OXYCODONE HCL IR 5 MG TAB (IMMEDIATE RELEASE) PO PRN ×2 (16:16→20:11)
[2019-12-06] MEDS: ASPIRIN 81 MG ECTAB PO SCH (20:10)
[2019-12-06] MEDS: DOCUSATE SODIUM 100 MG CAP PO SCH (20:10)
[2019-12-06] MEDS ORDERED: SENNA 8.6 MG TAB PO SCH (21:00)
[2019-12-07] MEDS: ACETAMINOPHEN 500 MG TAB PO SCH (05:57)
[2019-12-07] MEDS: KETOROLAC TROMETHAMINE 15 MG/ML VIAL IV SCH (05:57)
[2019-12-07] MEDS: SODIUM CHLORIDE 0.9% 1000ML 1,000 ML IV SCH (06:01)
[2019-12-07 06:04] LABS: Hematocrit (blood only) 32.3 % (37-47); Hemoglobin 10.5 g/dL (12.0-16.0); Immature Granulocytes # (auto) 0.05 K/uL (0.00-0.02); Immature Granulocytes % (auto) 0.3 %; Lymphocytes # (auto) 0.93 K/uL (1.2-3.4); Lymphocytes % (auto) 5.7 %; Mean Corpuscular Hemoglobin 31.2 pg (25-34); Mean Corpuscular Hgb Conc 32.5 g/dL (32-36); Mean Corpuscular Volume 95.8 fL (80-100); Mean Platelet Volume 10.8 fL (7.4-10.4); Monocytes # (auto) 1.09 K/uL (0.11-0.59); Monocytes % (auto) 6.7 %; Neutrophils # (auto) 14.17 K/uL (1.4-6.5); Neutrophils % (auto) 87.3 %; Platelet Count 233 K/uL (130-400); RDW Coefficient of Variation 13.4 % (11.5-14.5); RDW Standard Deviation 46.6 fL (36.4-46.3); Red Blood Count 3.37 M/uL (4.2-5.4); White Blood Count 16.24 K/uL (4.8-10.8)
[2019-12-07 06:21] LABS: BUN Creatinine Ratio 27.1 (10-20); Calcium 8.5 mg/dl (8.5-10.1); Creatinine Clr Calc Pharmacy 35.3 ml/min; Est GFR (African American) 106.9; Est GFR (Non-African American) 92.2; Potassium 4.4 mmol/L (3.5-5.1)
[2019-12-07] MEDS: Scopolamine CHECK PATCH PLACEMENT SCH (08:00)
[2019-12-07] MEDS ORDERED: dexAMETHasone 4 MG TAB PO SCH (08:00)
[2019-12-07] MEDS: DOCUSATE SODIUM 100 MG CAP PO SCH (08:23)
[2019-12-07] MEDS: ASPIRIN 81 MG ECTAB PO SCH (08:24)
[2019-12-07] MEDS ORDERED: COQ10 PO SCH (09:00)
[2019-12-07] MEDS ORDERED: CALCIUM PHOSPHATE VITAMIN D3 PO SCH (09:00)
[2019-12-07] MEDS ORDERED: MULTIVITAMIN TAB PO SCH (09:00)
[2019-12-07] MEDS ORDERED: NON-FORMULARY MEDICATION (Multivit-Min-Iron-Fa-Lutein [Centrum Silver Women] 1 TAB) PO SCH (09:00)
[2019-12-07] MEDS ORDERED: ASCORBIC ACID 500 MG TAB PO SCH (09:00)
[2019-12-07] MEDS ORDERED: FLUOXETINE HCL 20 MG CAP PO SCH (09:00)
--- NOTE | 2019-12-07 10:43 | Orthopedic Progress Note ---
Date of Service December 07, 2019 Assessment & Plan (1) S/P total hip arthroplasty: WBAT with walker Total hip precautions Keep dressing in place Ice with EZ wrap Abduction pillow use x 6 wks DVT prophy with TEDs and Aspirin Pain control with PO meds Will do own PT at home PT/OT this AM Follow up at [facility] as previously scheduled With questions call: Admission and Anticipated Discharge Date Admission Date: December 06, 2019 Subjective This 64 yo F is day 1 s/p Right Total Hip Arthroplasty. She states that she is doing very well and has had no difficulty transitioning from her bed to chair or ambulating to the bathroom with her walker. She states that she is ready to go home and will do her own PT. Currently she denies CP, SOB, nausea, vomiting, fever, chills, sweats or lethargy. Review of Systems Review of Systems: All systems reviewed & are unremarkable except as noted in Subjective Physical Exam Physical Exam: Right Hip: Dressing clean, dry and intact. Able to depict light sensation to touch circumferentially around silverlon. Able to perform activey SLRT and foot dorsi/plantar flexion. Quad strength 4/5. No pain with light passive log roll, internal and external hip rotation. NV intact in Right LE. Results & Data ([facility]) Vital Signs (Past 12 Hours) Vital Signs Temp Pulse Resp BP Pulse Ox 12/07/19 07:46 36.5 C 75 16 100/59 L 95 12/07/19 03:52 36.9 C 83 14 100/58 L 93 12/07/19 00:02 36.8 C 74 14 102/63 97 Laboratory Results 12/07/19 12/07/19 Range/Units 05:07 05:07 WBC 16.24 H (4.8-10.8) K/uL RBC 3.37 L (4.2-5.4) M/uL Hgb 10.5 L (12.0-16.0) g/dL Hct 32.3 L (37-47) % MCV 95.8 (80-100) fL MCH 31.2 (25-34) pg MCHC 32.5 (32-36) g/dL RDW Std Deviation 46.6 H (36.4-46.3) fL RDW Coeff of Diana 13.4 (11.5-14.5) % Plt Count 233 (130-400) K/uL MPV 10.8 H (7.4-10.4) fL Immature Gran % (Auto) 0.3 % Neut % (Auto) 87.3 % Lymph % (Auto) 5.7 % Sullivan % (Auto) 6.7 % Eos % (Auto) 0.0 % Baso % (Auto) 0.0 % Neut # (Auto) 14.17 H (1.4-6.5) K/uL Lymph # (Auto) 0.93 L (1.2-3.4) K/uL Sullivan # (Auto) 1.09 H (0.11-0.59) K/uL Eos # (Auto) 0.00 (0-0.5) K/uL Baso # (Auto) 0.00 (0-0.2) K/uL Immature Gran # (Auto) 0.05 H (0.00-0.02) K/uL Sodium 139 (136-145) mmol/L Potassium 4.4 (3.5-5.1) mmol/L Chloride 109 H (98-107) mmol/L Carbon Dioxide 25 (21-32) mmol/L Anion Gap 6.0 (3-11) BUN 19 H (7-18) mg/dl Creatinine 0.70 (0.6-1.2) mg/dl Est Cr Clr Drug Dosing 35.3 ml/min Est GFR ( Amer) 106.9 Est GFR (Non-Af Amer) 92.2 BUN/Creatinine Ratio 27.1 H (10-20) Glucose 116 H (70-99) mg/dl Calcium 8.5 (8.5-10.1) mg/dl
--- NOTE | 2019-12-07 10:44 | Discharge Summary ---
Date of Service December 07, 2019 Admission HPI Per Admitting Provider History of Present Illness (including history relevant to procedure): This 64-year-old female presents the clinic today for preoperative history and physical. Patient has a longstanding history of bilateral hip pain with the right being greater than that of the left. Patient states this is been ongoing for the past 10 to 12 years and over the past several months has become persistent. Patient refers most of her pain to the anterior groin of the right hip. Pain is exacerbated when transitioning from a seated to a standing position. She states that at times it does affect her gait and as well as her activities of daily living. Patient states she uses Advil to control her pain which is only minimally effective. Patient states that it is time to have her issue dealt with surgically. 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 She denies tobacco or illicit drug use Family history: Cancer Current Home Meds: (Last Updated 11/19 13:54) and vitamin D combination (Caltrate 600 + D) 1 tab PO Daily(FLUoxetine 40 mg oral capsule) 40 mg PO Daily multivitamin 1 tab PO Daily(CoQ10) Initial Wt: 11/19 80.3 kg 177 lb Admission Exam Per Admitting Provider Physical Exam: (relevant to the procedure, including heart and lung evaluation) General: Alert and oriented x3 with proper grooming and hygiene Eyes: Pupils are equal and reactive to light with accommodation. Extraocular movements are intact Neck: Deferred due to COVID-19 precautions Cardiac: Regular rate and rhythm with no murmurs or gallops appreciated Lungs: Clear to auscultation throughout with no wheezing, rales or rhonchi Abdomen: Nonobese, nondistended, nontender with normal active bowel sounds Extremities: She has limited range of motion of the right hip compared with the left with flexion to 85 degrees, external rotation of 35 degrees and internal rotation of -15 degrees. She has a positive Stinchfield test. No tenderness over the greater trochanter. Distally neurovascularly intact with palpable pulses. Neuro: Cranial nerves II through XII are intact no motor or sensory deficit Skin: Normal in appearance with no open skin areas or discharge Principal Diagnosis Right hip osteoarthritis Discharge Exam Right Hip: Dressing clean, dry and intact. Able to depict light sensation to touch circumferentially around silverlon. Able to perform activey SLRT and foot dorsi/plantar flexion. Quad strength 4/5. No pain with light passive log roll, internal and external hip rotation. NV intact in Right LE. Discharge Data Allergies Allergy/AdvReac Type Severity Reaction Status Date / Time med Allergy Intermediate nausea, Verified 12/06/19 05:43 headache Sulfa (Sulfonamide Allergy Intermediate nausea, Verified 12/06/19 05:43 Antibiotics) headache venlafaxine [From Effexor] AdvReac Intermediate difficulty Verified 12/06/19 05:43 concentrating, loss of focus Consultations 12/07/19 08:00 Consult Case Management - Discharge Planning Routine Procedures Performed Operation Date: 12/06/19 07:15 Actual Procedures p Right Total Hip Arthroplasty(Right) - Aram Schwartz MD Hospital Course (1) S/P total hip arthroplasty: Patient did very well overnight. She states that her pain is completely gone. She did very well with PT/OT this AM and is ready for discharge. She plans on doing her own PT for the first 2 weeks post operatively. WBAT with walker Total hip precautions Keep dressing in place Ice with EZ wrap Abduction pillow use x 6 wks DVT prophy with TEDs and Aspirin Pain control with PO meds Will do own PT at home PT/OT this AM Follow up at [facility] as previously scheduled With questions call: Total Time Total Time Spent Total Time Spent (In Minutes): 20 Total Time Includes: Examination of the Patient, Discharge Planning, Medication Reconciliation and Communication With Other Providers Discharge Plan Discharge Items Patient Disposition: Home - Self-Care Reason For Visit: Right Hip Osteoarthritis Discharge Diagnosis: Right Hip Osteoarthritis Activity: As commented below Lifting: None Bathing: Keep incision dry Bathing Comment: May shower tomorrow Sexual Activity: Wait until after follow-up appointment Exercise/Sports: Wait until after follow-up appointment Weightbearing Comment: as tolerated with walker assistance Non-emergency contact: Primary Care Provider Call non-emergency contact if: you have any medication questions, your pain is worsening, your temperature is above 101.5, your wound has increased drainage and your wound pain has increased Follow-up/Referrals: Tony Moody MD [Primary Care Provider] - Diet: Regular Addtl Attending Provider Instructions: Post-operative Instructions Dear Patient and Family/Friends, Before you are discharged from the hospital, it is important to know what to expect when you get home after surgery. To that end, we have created this sheet of discharge instructions which covers many commonly asked questions. Make sure you go through this sheet in its entirety with your nurse before you are discharged. Please note that we will go over the specifics of your surgery and recovery when you return for your first post-operative visit. Sincerely, Dr. Schwartz Medication 1. Oxycodone 5 mg: take 1-2 tabs by mouth every 4-6 hours as needed for post- operative pain. A prescription for this medication will be sent to your pharmacy. 2. Diclofenac Sodium 75 mg: take 1 tab twice daily for 30 days post operatively. This will also be sent to your pharmacy with 1 refill. 3. Aspirin 81 mg: take 1 tab twice daily for 30 days post operatively for blood clot prevention. Please purchase. 4. Extra Strength Tylenol 500 mg: take 2 tabs every 6-8 hour as needed for pain relief for 30 days post operatively. Please purchase. Pain Expect to be in a fair amount of pain after surgery. Remember, our goal is not to eliminate your pain, but to make it tolerable. It is a good idea to stay ahead of your pain by taking the medications you were prescribed once you get home. Typically, the pain starts improving 3-7 days after surgery. You should start weaning off the narcotic pain medication (oxycodone, hydrocodone, hydromorphone, morphine) as soon as your pain improves. Please call our office if your pain is not adequately controlled. Ice Ice your operative site at least 5 times a day for 15-30 minutes at a time. Make sure you have a thin cloth between the ice or cooling unit and your skin to prevent monroe bite. This is especially important if you received a nerve block. Continue icing your operative site for the first 5-7 days after surgery, then as needed. Diet/Nausea/Vomiting Start by drinking clear liquids and eating crackers. If you can tolerate this, then you may resume your normal diet. If you feel nauseated or vomit, take Zofran/ondansetron (if prescribed). Please call our office if you have intractable nausea or vomiting, or, if after hours, you may go to the Emergency Room for help. Constipation Constipation is a common side effect of narcotic pain medication. If you have not had a bowel movement within 2 days after surgery, we recommend purchasing an over the counter laxative such as Milk of Magnesia, Dulcolax, or Miralax from a local pharmacy, and taking it as instructed. Call our clinic if any questions. Nerve block The anesthesia team sometimes places a nerve block to help with post-operative pain control. This results in significant numbness and inability to move the extremity. The nerve block usually wears off in 8-12 hours, but sometimes can last up to 24 hours. Please call our office if you are still unable to move your extremity after 24 hours, unless you received a pain pump to take home. Nerve blocks typically wear off quickly, so start taking pain medication as soon as you start feeling soreness near your surgical site. Weight bearing and Range of Motion. Do not bear any weight through your operative extremity immediately after surgery. If you had upper extremity surgery, do not lift anything with that arm. If you are in a knee brace, keep it locked in place until your follow-up. We will discuss your weight bearing, range of motion, and lifting restrictions in detail at your first post-operative appointment. Continuous Passive Motion (CPM) Machine If you were prescribed a CPM machine, it will start after your first post- operative appointment, at which time we will give you instructions on the range of motion settings and duration of treatment Physical therapy You will be given a prescription for physical therapy or occupational therapy at your first post-operative appointment. Typically, patients start therapy within 1 week of surgery Wound care and showering We will inspect your wound at your first post-operative visit, and may do a dressing change at that time. Most patients will be in a water-proof dressing that is removed 14 days after surgery. It is normal to see some dried blood on the dressing. Do not remove your dressing, paper strips or sutures yourself unless you are given permission. Showering is allowed the day after surgery. Do not scrub or remove any dressings. The wound should not be submerged underwater (i.e. in a bathtub or pool) until 4 weeks after surgery FAITH stockings If you were given white stockings, these are to be worn at all times except to shower (on both legs) for the first 2 weeks after surgery. Driving You may not drive while taking narcotic pain medication or while in a cast, splint, sling or brace. You, the patient, need to make the final determination about when you are safe to drive, however, the earliest you may consider driving after surgery is below: Hand/Wrist/Elbow Surgery: 3 days Shoulder Surgery: 2 weeks Hip,/Knee/Ankle Surgery: 4 weeks Fracture repair: 6 weeks Return to Work Your return to work depends on what surgery was done and what type of work you do. Please bring any paperwork your employer needs completed to your first post-operative visit. Also, bring a description of your job duties, as this helps us to understand what risks you may face at work. Travel Avoid long distance travel (greater than 1 hour) in airplanes and cars for the first 6 weeks after surgery. If you must travel, you need to have a Doppler ultrasound done before you travel to rule out a blood clot in your legs. Follow-up You should have a follow-up appointment already scheduled 1-2 days after surgery. If not, please contact our office to make this appointment before you leave the hospital. When to call the office It is normal to have swelling and bruising in the limb that was operated on. This will improve with time. It is also normal to have fevers for the first 2 days after surgery. Reasons you should call your doctor include: Uncontrolled pain; Nausea, vomiting, or constipation that does not improve with medication; Fevers over 101.5, chills, sweats; Drainage or bleeding from the wound; Foul odor; Spreading areas of redness; Any other concerns Pending Studies at Discharge: No Stand-Alone Forms: [employer], Smoking Cessation Medications and DC Order Prescriptions: New oxycodone 5 mg tablet 5 mg PO Q6H Qty: 30 RF: 0 diclofenac sodium 75 mg tablet,delayed release (DR/EC) 75 mg PO Q12H Qty: 60 RF: 1 Continued fluoxetine 40 mg capsule 40 mg PO QAM Qty: 90 RF: 3 ascorbic acid (vitamin C) [Vitamin C] 1,000 mg Tablet 1 g PO DAILY RF: 0 coQ10 (ubiquinol) 200 mg Capsule 400 mg PO DAILY RF: 0 Centrum Silver Women 8 mg iron-400 mcg-300 mcg Tablet 1 tab PO DAILY RF: 0 calcium phosphate-vitamin D3 [Citracal-D3 Gummies] 250 mg calcium- 500 unit Tablet,Chewable 2 tab PO DAILY RF: 0 ibuprofen-diphenhydramine cit [Advil PM] 200-38 mg Tablet 2 cap PO HS PRN (Reason: Sleep) RF: 0 Discharge Orders: Discharge Order (Routine); Ordered 12/07/19 Ordered By: Jah Meza Admission Data Admit Date/Time: 12/06/19 09:14 Attending Provider: Aram Schwartz Admit Provider: Aram Schwartz Primary Care Provider: Tony Moody
== END 2019-12-07 12:06 | disposition home or self-care (01) ==
LOC: 3E 05:22 → ASU 05:22

== ENCOUNTER 2021-04-09 05:24 | Observation (INO) ==
--- NOTE | 2021-03-12 14:12 | PAT Medication Instructions ---
Medication Instructions Date of Service March 12, 2021 Home Medications Medication Instructions Recorded fluoxetine 40 mg capsule 40 mg PO QAM #90 cap 09/05/20 ascorbic acid (vitamin C) 1,000 mg tablet (Vitamin C) 1 g PO QAM calcium phosphate 250 mg-vit D3 12.5 mcg (500 unit) chewable tablet (Citracal-D3 Gummies) 2 tab PO QAM coQ10 (ubiquinol) 200 mg capsule 400 mg PO QAM multivit with gddjkxbv-khmr-XT-lutein 8 mg iron-400 mcg-300 mcg tablet (Centrum Silver Women) 1 tab PO QAM ibuprofen-diphenhydramine citrate 200 mg-38 mg tablet (Advil PM) 2 cap PO HS PRN fluoxetine 40 mg capsule 40 mg PO QAM cholecalciferol (vitamin D3) 125 mcg (5,000 unit) capsule 125 mcg PO QAM ASK your surgeon for instructions ibuprofen-diphenhydramine citrate 200 mg-38 mg tablet (Advil PM) 2 cap PO HS PRN STOP taking 2 weeks before surgery coQ10 (ubiquinol) 200 mg capsule 400 mg PO QAM DO NOT take the morning of surgery ascorbic acid (vitamin C) 1,000 mg tablet (Vitamin C) 1 g PO QAM calcium phosphate 250 mg-vit D3 12.5 mcg (500 unit) chewable tablet (Citracal-D3 Gummies) 2 tab PO QAM multivit with hxsqvgkb-xtiz-IS-lutein 8 mg iron-400 mcg-300 mcg tablet (Centrum Silver Women) 1 tab PO QAM cholecalciferol (vitamin D3) 125 mcg (5,000 unit) capsule 125 mcg PO QAM Take morning of surgery With a small sip of water, OTHERWISE NOTHING TO EAT OR DRINK AFTER MIDNIGHT: fluoxetine 40 mg capsule 40 mg PO QAM Other Notes If you have any questions please call us at [phone] or [phone] or [phone] or [phone]
--- NOTE | 2021-03-24 14:48 | Anesthesiology Consultation ---
Date of Service March 24, 2021 Assessment & Plan (1) Encounter for pre-operative examination: Chart Review Chart Review: Acceptable Risk for Surgery (pending surgeon ordered PCP clearance and preop Covid testing results ) Awaiting surgeon ordered PCP clearance 03/31/21 Upon review of chart- patient is an acceptable candidate for [facility] from anesthesia perspective. Patient is motivated, has good support; pending surgeon's office completes [facility] preop requirements- patient may proceed with outpatient [facility]. Per PAT appt on 03/24/21, patient denies any recent travel or large group activities. No known Covid positive exposures or Covid related symptoms. No known Covid infection in the past 90 days. Pt is NOT vaccinated for Covid. Preop Covid testing scheduled 04/07/21 = will await results. Educated on importance of self quarantining, social distancing and wearing mask in public for the patient one week prior to surgery and after Covid testing done History Surgery Operation Date: 04/09/21 07:00 Proposed Procedures p Left Total Hip Arthroplasty - Aram Schwartz MD Height/Weight Height: 5 ft 8 in Weight: 78 kg Allergies Allergy/AdvReac Type Severity Reaction Status Date / Time med Allergy Intermediate nausea, Verified 03/11/21 15:22 headache Sulfa (Sulfonamide Allergy Intermediate nausea, Verified 03/11/21 15:22 Antibiotics) headache venlafaxine [From Effexor] AdvReac Intermediate difficulty Verified 03/11/21 15:22 concentrating, loss of focus Medications Home Medications Medication Instructions Recorded Confirmed Last Taken ascorbic acid (vitamin C) 1,000 mg 1 g PO QAM 06/13/19 03/11/21 12/05/19 13:00 tablet (Vitamin C) calcium phosphate 250 mg-vit D3 2 tab PO QAM 06/13/19 03/11/21 12/05/19 13:00 12.5 mcg (500 unit) chewable tablet (Citracal-D3 Gummies) coQ10 (ubiquinol) 200 mg capsule 400 mg PO QAM 06/13/19 03/11/21 11/22/19 09:00 multivit with 1 tab PO QAM 06/13/19 03/11/21 12/05/19 13:00 phypvnts-biju-KM-lutein 8 mg iron-400 mcg-300 mcg tablet (Centrum Silver Women) ibuprofen-diphenhydramine citrate 2 cap PO HS PRN 12/06/19 03/11/21 12/05/19 21:00 200 mg-38 mg tablet (Advil PM) fluoxetine 40 mg capsule 40 mg PO QAM #90 cap 09/05/20 03/11/21 Unknown cholecalciferol (vitamin D3) 125 125 mcg PO QAM 03/11/21 03/11/21 Unknown mcg (5,000 unit) capsule Past Medical History Medical History Anxiety Depression Osteoarthritis Osteopenia Exercise / Class Metabolic Activity II 4-5 Yardwork/Stairs/Walk up hill (one flight of stairs - no chest pain or SOB ) Past Family History Family History Father Colon cancer Brother Polyp of sigmoid colon Mother CKD (chronic kidney disease) Sister Seizures Past Surgical History Surgical History H/O laparoscopy R/T FERTILITY PROBLEMS History of section History of colonoscopy 2020 History of surgery on wrist LEFT/RT FX WRIST REPAIR History of tonsillectomy and adenoidectomy History of total right hip arthroplasty 12/06/19-Dr Schwartz Hx of abdominal surgery D/T ECTOPIC Uterine fibroid [place] teeth removed Past Anesthesia History No Hx of Anesthesia Complications and No Family Hx of Anesthesia Complications History of PONV No Hx of PONV and No Hx of Motion Sickness Social History Smoking Status: Former smoker tobacco type: cigarettes Smoking cigarettes per day: 20 Do You Dip or Chew Tobacco: No Smoking End Date: QUIT 5 YRS AGO Hx Alcohol Use: No (Recovering alcoholic, 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 No hx of seizures, stroke, [place]. No hx of blood clots or blood transfusions Physical Exam Vital Signs VITALS BP 143/83 P 65 TEMP 97.3 SP02 98% RESP 16 Constitutional no acute distress ENMT Mouth: no TMJ clicking Thyromental Distance: < 3.5 Finger Breadths (3.0) Mallampati Class: III Crowns and permanent bridge to upper left side teeth Neck neck extension not limited Respiratory normal respiratory effort; no respiratory distress Auscultation: lungs clear to auscultation bilaterally; no wheezes Cardiovascular Rate/Rhythm: regular rate and regular rhythm Heart Sounds: no murmur Vessels: no carotid bruit Musculoskeletal Spine: no pain with cervical ROM Extremities: extremities normal to inspection Psychiatric Orientation: alert Lab Results Anesthesia Preop Results Results Anesthesia Widget: WBC 6.77 K/uL (4.8-10.8) 03/24/21 Hgb 13.1 g/dL (12.0-16.0) 03/24/21 Hct 39.8 % (37-47) 03/24/21 Plt 290 K/uL (130-400) 03/24/21 Na 136 mmol/L (136-145) 03/24/21 K 3.9 mmol/L (3.5-5.1) 03/24/21 Cl 102 mmol/L (98-107) 03/24/21 CO2 31 mmol/L (21-32) 03/24/21 BUN 24 mg/dl (7-18) H 03/24/21 Creat 0.59 mg/dl (0.6-1.2) L 03/24/21 Glucose Level 91 mg/dl (70-99) 03/24/21 PT 9.8 Seconds (9.0-12.0) 03/24/21 INR 1.0 (0.9-1.1) 03/24/21 HA1c 5.6 % (4.5-5.6) 03/24/21 Urine Color Yellow 03/24/21 Urine Appearance Clear (Clear) 03/24/21 Urine pH 6.0 (4.5-7.5) 03/24/21 Urine Specific [place] 1.008 (1.000-1.030) 03/24/21 Urine Protein Negative (Negative) 03/24/21 Urine Glucose (UA) Negative (Negative) 03/24/21 Urine Ketones Negative (Negative) 03/24/21 Urine Blood Negative (Negative) 03/24/21 Urine Nitrite Negative (Negative) 03/24/21 Urine Bilirubin Negative (Negative) 03/24/21 Urine Urobilinogen Negative (Negative) 03/24/21 Urine Leukocyte Esterase 1+ (Negative) H 03/24/21 Urine WBC (Auto) 1-5 /hpf (0-5) 03/24/21 Urine RBC (Auto) 0-4 /hpf (0-4) 03/24/21 Urine Hyaline Casts (Auto) 0 /lpf (0-5) 03/24/21 Urine Epithelial Cells (Auto) 10-20 /lpf (0-5) H 03/24/21 Urine Bacteria (Auto) Negative (Negative) 03/24/21 Blood Type A Positive 03/24/21 Antibody Screen NEGATIVE 03/24/21 Testing Laboratory Results 03/24/21= HGB A1C: 5.6 Electrocardiogram Date: 03/24/21 Findings: + NSR @ (61bpm) Normal EKG per cardio. Compared to EKG from November 29, 2019nonspecific T wave abnormality has replaced inverted T waves in anterior leads per cardio. Echocardiogram Date: 11/30/19 EF: 65-70% LV Function: normal RWMA: + none Valvular Disease: + no significant valvular disease Mild left atrial dilation. Other Testing Chest CT 10/23/2020 = mild emphysema. No new or enlarging pulmonary lesions identified. Scattered subcentimeter pulmonary nodules that measure up to 5 mm are unchanged from previous. No airspace consolidation or pleural effusion.
--- NOTE | 2021-03-27 08:45 | History & Physical Report ---
Date of Service March 27, 2021 Assessment & Plan (1) Osteoarthritis of left hip: Plan: PRE-OP Diagnosis: Left hip osteoarthritis Planned Procedure: Left total hip arthroplasty Plan: Patient is scheduled to undergo this procedure at the [facility] as an outpatient on April 09, [address] Aram Schwartz. Risks and complications of the procedure such as: Infection, bleeding, pain, scarring, nerve blood vessel damage, weakness, wound problems, stiffness, incomplete relief of symptoms, hardware failure, hardware loosening, wear, fracture, tendon or ligament injury, dislocation, leg length inequality, blood clots, embolism, heart attack, stroke and were explained to the patient at her visit today. Informed consent to perform the procedure was obtained. Patient also understands risks of proceeding with surgical intervention during the COVID-19 pandemic. Currently she is asymptomatic and understands she will need to be tested prior to surgery. Patient states that she has an appointment scheduled with her primary care provider Dr. Moody next week. She is set to meet with anesthesia later this afternoon and while there we will obtain a CBC with differential, complete metabolic panel, PT/INR, blood type and screen, urin alysis, urine culture and sensitivity, EKG, hemoglobin A1c and a nasal culture for MRSA. During today's visit we discussed the necessity of a walker, hip kit, shower chair, raised toilet seats and reviewed total hip precautions. Patient states that she has all of these items from her previous right hip surgery. She will bring her walker with her on the day of the surgery. She states that befor e her last hip replacement she did partake in the lectures offered by [facility] in regards to her placement surgery via zoom. Patient states she will reviewed the packet that was provided during today's visit and if she has some questions that should come up for the surgery she will either contact clinic or watch another Zoom session. During today's visit PDMP was checked and no red flags were raised that would prevent us from prescribing the patient an opioid analgesic for postoperative pain control. Prescriptions for oxycodone, diclofenac sodium, Zofran and Senokot, were sent to her pharmacy to use postoperatively. We also discussed DVT prophylaxis with baby aspirin twice daily for the first 30 days postoperatively. Patient plans on doing in-home physical therapy with [facility] care for the first 2 weeks postoperatively. She is scheduled to see me for 2-week postoperative follow-up on April 24 at 1 PM. Patient verbalizes understanding of all information provided during today's visit. She thanks for the care that she received. If she has questions or concerns should arise prior to her surgery, she will contact clinic. History of Present Illness Chief Complaint: Chief Complaint: Left hip pain Primary Care Provider: Pancho Moody MD History of Present Illness (including history relevant to procedure): This 66-year-old female presents to the clinic today for her preoperative history and physical. She has been experiencing significant left-sided hip pain since early 2020. Patient had a right hip replaced back at the end of 2019 and is doing extremely well. She states the pain in her left hip is very close to the pain she experienced before undergoing the right hip replacement. Left hip bothers her every night when she is trying to sleep. Getting up and down out of a chair or in and out of car causes pain in her groin. Patient states that she is used [id number]-wdf-ebhztdt anti-inflammatory agents with only minimal relief. She has been doing exercises that she did after her right total hip replacement and they are causing significant pain in her left hip. It is affecting quite a bit of her activities of daily living Review Of Systems: 12 point review of systems is performed and is unremarkable except for those things stated in the HPI and past medical history. Past Medical History: Problems: Osteoarthritis of left hip S/P total hip arthroplasty Preop examination Seborrheic keratoses Melanocytic nevus of trunk Hip osteoarthritis Inflamed seborrheic keratosis Acne Procedure History Procedure Procedure Date Comments Hip replacement - R Shave biopsy of skin 06/25/2013 - right and left cheek Surgery 2002 - left wrist fracture Allergies and Sensitivities: mangoes(nauseaded) Effexor(dizzy) Effexor(foggy) sulfa drugs(headache) Social history: Patient denies tobacco or illicit drug use. She states that she was a pack per day smoker but quit 8 years ago. Family history: Cancer Current Home Meds: (Last Updated 03/26 16:57) amoxicillin (amoxicillin 500 mg oral capsule) TAKE 4 CAPS BY MOUTH INDICATED,INSTR:ONE HOUR BEFORE DENTAL AND OTHER PROCEDURES DIRECTED calcium and vitamin D combination (Caltrate 600 + D) 1 tab PO Daily diclofenac (diclofenac sodium 75 mg oral delayed release tablet) 75 mg PO bid PRN: as needed for pain with food fluoxetine (FLUoxetine 40 mg oral capsule) 40 mg PO Daily multivitamin 1 tab PO Daily ondansetron (Zofran 4 mg oral tablet) 4 mg PO q8h oxyCODONE (oxyCODONE 5 mg oral tablet) 10 mg PO q4h PRN: as needed for pain Initial RxPost operative pain control senna (Senokot 8.6 mg oral tablet) 8.6 mg PO qhs with plenty of water ubiquinone (CoQ10) Initial Wt: 03/24 78.0 kg 172 lb Allergies Allergy/AdvReac Type Severity Reaction Status Date / Time med Allergy Intermediate nausea, Verified 03/11/21 15:22 headache Sulfa (Sulfonamide Allergy Intermediate nausea, Verified 03/11/21 15:22 Antibiotics) headache venlafaxine [From Effexor] AdvReac Intermediate difficulty Verified 03/11/21 15:22 concentrating, loss of focus Home Medications Medication Instructions Recorded Confirmed Type ascorbic acid (vitamin C) 1,000 mg 1 g PO QAM 06/13/19 03/11/21 History tablet (Vitamin C) calcium phosphate 250 mg-vit D3 2 tab PO QAM 06/13/19 03/11/21 History 12.5 mcg (500 unit) chewable tablet (Citracal-D3 Gummies) coQ10 (ubiquinol) 200 mg capsule 400 mg PO QAM 06/13/19 03/11/21 History multivit with 1 tab PO QAM 06/13/19 03/11/21 History jvbcnncf-yylg-WX-lutein 8 mg iron-400 mcg-300 mcg tablet (Centrum Silver Women) ibuprofen-diphenhydramine citrate 2 cap PO HS PRN 12/06/19 03/11/21 History 200 mg-38 mg tablet (Advil PM) fluoxetine 40 mg capsule 40 mg PO QAM #90 cap 09/05/20 03/11/21 Rx cholecalciferol (vitamin D3) 125 125 mcg PO QAM 03/11/21 03/11/21 History mcg (5,000 unit) capsule Past Med/Surg History Medical History Anxiety Depression Osteoarthritis Osteopenia Surgical History H/O laparoscopy R/T FERTILITY PROBLEMS History of section History of colonoscopy 2020 History of surgery on wrist LEFT/RT FX WRIST REPAIR History of tonsillectomy and adenoidectomy History of total right hip arthroplasty 12/06/19-Dr Schwartz Hx of abdominal surgery D/T ECTOPIC Uterine fibroid [place] teeth removed Family History Father Colon cancer Brother Polyp of sigmoid colon Mother CKD (chronic kidney disease) Sister Seizures Social History Smoking Status: Former smoker Cigarettes Per Day: 20; Second Hand Exposure: No; Hx Alcohol Use: No (Recovering alcoholic, 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) Hx Substance Use: No Preferred Language: Divehi Communication Ability: Effective Farm Management Agent Required: No Beliefs That Will Affect Care: None marital status: Current Living Situation: Spouse current occupational status: employed current occupation: [employer] Feels Safe at Home: Yes Childhood Exposure to Second-Hand Smoke: No Diet Comment: healthy diet caffeine: Yes Dental Care, Regularly: Yes Physical Activity Frequency: Daily Seatbelt Use: always Sunscreen Use: Yes Assistive Devices: Contacts and Glasses Review of Systems All systems reviewed & are unremarkable except as noted in Subjective Physical Exam Physical Exam: Physical Exam: (relevant to the procedure, including heart and lung evaluation) General: Alert and oriented x3 with proper grooming and hygiene Eyes: Pupils are equal and reactive to light with accommodation. Extraocular movements are intact Throat: Deferred due to COVID-19 precautions Cardiac: Regular rate and rhythm with a grade 2/6 holosystolic murmur heard best over the left upper sternal border. No gallops appreciated Lungs: Clear to auscultation throughout with no wheezing, rales or rhonchi Abdomen: Nonobese, nondistended, nontender with NABS Extremities: Left hip; flexion is limited to 110 degrees. External rotation to 40 degrees and internal rotation to 5 degrees with referred pain to the groin area. ERIS test is positive. Logroll test is negative however Stinchfield and scour/impingement tests are positive during today's visit. Patient is neurovascularly intact in left lower extremity. Neuro: Cranial nerves II through XII are intact with no motor or sensory deficit Skin: Normal appearance no open skin areas of discharge Results & Data ([facility]) Diagnostic Findings Studies (relevant to the procedure): X-rays done of the left hip as well as AP pelvis demonstrate patient to have central pattern osteoarthritis with peripheral osteophytes noted. Findings are consistent with severe osteoarthritis of the left hip.
[2021-04-09] MEDS ORDERED: ROPIVACAINE 0.5% HCL/PF 150 MG, BUPIVACAINE 0.75% MPF 20 ML, EPINEPHrine 0.15 MG, Ketor... INFIL SCH (06:00)
[2021-04-09] MEDS ORDERED: LR 60ML/HR IV SCH (06:00)
[2021-04-09] MEDS ORDERED: dexAMETHasone 4 MG TAB PO SCH (06:00)
[2021-04-09] MEDS ORDERED: traMADol HCL 50 MG TABLET PO SCH (06:00)
[2021-04-09] MEDS ORDERED: ceFAZolin 2000MG 2,000 MG/15 ML SYR IV SCH (06:00)
[2021-04-09] MEDS ORDERED: ACETAMINOPHEN 500 MG TAB PO SCH (06:00)
[2021-04-09] MEDS ORDERED: TRANEXAMIC ACID 1,000 MG **IV Intra-op IV SCH (06:00)
[2021-04-09] MEDS ORDERED: FAMOTIDINE 20 MG TAB PO SCH (06:00)
[2021-04-09] MEDS ORDERED: TRANEXAMIC ACID 1,000 MG **IV Pre-op IV SCH (06:00)
[2021-04-09] MEDS ORDERED: LR 500ML BOLUS, THEN 15ML/HR IV SCH (06:00)
[2021-04-09] MEDS ORDERED: Scopolamine 1 MG TDSY TD SCH (06:00)
[2021-04-09] MEDS ORDERED: BUPIVACAINE 0.5 % 5 MG/1 ML PF 10ML VIAL ONE (06:26)
[2021-04-09] MEDS ORDERED: MEPIVACAINE HCL 1.5% 30 ML VIAL ONE (06:26)
[2021-04-09] MEDS ORDERED: MIDAZOLAM HCL 1 MG/ML 2ML VIAL ONE ×2 (06:30)
[2021-04-09] MEDS ORDERED: fentaNYL citrate 100 MCG/2 ML VIAL ONE (06:31)
[2021-04-09] MEDS ORDERED: ORTHO JOINT ANESTHETIC ONE (06:33)
[2021-04-09] MEDS ORDERED: DEXAMETHASONE SOD INJ 4 MG/ML VIAL ONE (06:36)
[2021-04-09] MEDS ORDERED: PROPOFOL IV EMULSION 10 MG/ML 20 ML VIAL IV ONE (06:36)
[2021-04-09] MEDS ORDERED: LIDOCAINE 2% 2 ML VIAL/AMP(20MG/ML) INFIL ONE (06:36)
[2021-04-09] MEDS ORDERED: ONDANSETRON INJ 2 MG/ML 2 ML VIAL ONE (06:36)
--- NOTE | 2021-04-09 06:40 | History & Physical Bridge Note ---
Date of Service April 09, 2021 History & Physical Bridge Note I have examined the patient, reviewed the History & Physical and in the interval since the performance of the History & Physical I have noted the following changes of clinical significance: no changes noted
[2021-04-09] MEDS ORDERED: LABETALOL HCL IV 5 MG/ML 20ML IV PRN (07:11)
[2021-04-09] MEDS ORDERED: ONDANSETRON INJ 2 MG/ML 2 ML VIAL IV PRN (07:11)
[2021-04-09] MEDS ORDERED: fentaNYL citrate 100 MCG/2 ML VIAL IV PRN (07:11)
[2021-04-09] MEDS ORDERED: PHENYLEPHRINE 100MCG/ML 5ML SYR IV PRN (07:11)
[2021-04-09] MEDS ORDERED: ePHEDrine sulfate 50 MG/ML AMP IV PRN (07:11)
[2021-04-09] MEDS ORDERED: HYDROmorphone INJ 1 MG/ML SYRINGE IV PRN (07:11)
[2021-04-09] MEDS ORDERED: ATROPINE SULFATE 0.1 MG/ML 10ML SYR IV PRN (07:11)
[2021-04-09] MEDS ORDERED: ePHEDrine sulfate 50 MG/ML AMP ONE (08:00)
[2021-04-09] MEDS ORDERED: PHENYLEPHRINE HCL 10 MG/ML VIAL ONE (08:05)
--- NOTE | 2021-04-09 08:58 | Operative Report ---
Post Operative Report Pre & Post Diagnosis Operation Date: 04/09/21 07:00 Pre-Op Diagnosis: Left Hip Osteoarthritis Post-Op Diagnosis: Left Hip Osteoarthritis I identified the patient and participated in the time-out.: Yes Procedure Operation Date: 04/09/21 07:00 Actual Procedures p Left Total Hip Arthroplasty(Left) - Aram Schwartz MD Surgeon Aram Schwartz MD Profile Mill Operator Tape Control TAMAR Meza PA-C. No resident or fellow was available to assist. Estimated Blood Loss 100 Findings Consistent with Post-Op Diagnosis Specimens Left femoral head Anesthesia Type MAC Epidural Complications none Disposition Disposition: Recovery Room Indications 66-year-old female with left hip arthritis refractory to conservative management. She is previously undergone a right total hip arthroplasty by myself with a good result. She now elects to have the same procedure done on the left. I had a long discussion with her on the risks and benefits of surgery, alternatives to surgery, and expected outcomes. After reviewing all these she elected proceed with surgery. All questions were answered. Informed consent was signed. Description of Procedure Patient was identified in the preoperative holding area and the surgical site, left hip, was marked. A epidural anesthetic was placed, then the patient was brought back to the main operating room, placed in the operating table and moved into the lateral decubitus position. Axillary roll was placed. All bony prominences were padded. Perioperative antibiotics and tranexamic acid 1 gram IV were administered. Operative extremity was prepped and draped in the normal sterile fashion. Prior to incision a multidisciplinary timeout was called. All in the room were in agreement. We began by making an incision for a posterior approach to the hip. We dissected down through subcutaneous tissues to the level of the fascia. The fascia was incised in line with the incision. Charnley bow was placed. The trochanteric bursa was excised. The piriformis and short external rotators were dissected off the posterior aspect of the hip. A box cut was made in the capsule. The femoral head was dislocated. The femoral neck cut was made at our preoperative template. The acetabulum was then exposed. The labrum was sharply excised. Contents of the cotyloid fossa were removed with electrocautery. We then began reaming at a size 8 mm less than our preoperative template. We reamed up by 1 [address] the way up to a size 52 mm cup. This gave us good bleeding cancellus bone circumferentially. The acetabulum was then irrigated out and dried. The real Mentor Gription cup was then impacted down into position with 45 degrees of lateral opening and 25 degrees of anteversion. A single cancellous bone screw was placed up into the ilium. Excellent fixation was obtained. An Altrx polyethylene liner for a 32 mm femoral head was then impacted into the shell. The locking mechanism was checked to ensure that it had engaged which it had. Next we turned our attention to the femur. The lateral neck was removed with a box osteotome. Intramedullary guide was used followed by the lateralizing reamer. We then reamed up to a size 6 Alder stem. We then broached all the way up to a size 6. We began trialing with a high offset neck and a +1 head. This was the exact component she had on the other side. Hip was reduced. Leg lengths were symmetric. The hip was stable in extension and external rotation, and stable in the sleeper position. At 90 degrees of hip flexion the hip could be internally rotated 60 degrees before levering out of the cup. I was very happy with the stability exam. Therefore the hip was dislocated and the femoral trial was removed. The femoral canal was irrigated and dried. The real size 6 high offset Alder femoral stem was opened up. This was impacted down into position. It sat at the same level as the femoral trial. Therefore the 32 mm ceramic femoral head with a +1 mm offset was opened up and gently impacted down onto the trunnion. The hip was atraumatically reduced. Another 1 gram of IV tranexamic acid was started prior to closure. The wound was irrigated out with sterile Betadine solution. The periarticular injection cocktail was then placed. The short external rotators, piriformis, and posterior capsule were repaired through drill holes in the greater trochanter u sing #2 Vicryl. The fascia was run with a looped #1 PDS. The subcutaneous layer was closed with #1 PDS. The dermal layer was closed with 2-0 Vicryl. Zip line was used for the skin followed by a Silverlon dressing. A compressive dressing was then placed. The patient was then rolled supine. Leg lengths were rechecked and were symmetric. An abduction pillow was placed. Sedation was lifted and the patient was transferred to recovery room in stable condition. Summary of implants: Depuy Mentor Gription Acetabular Shell Sector Cup, 52 mm outer diameter Mentor Cancellous bone screw, 6.5 x 35 mm Mentor Altrx Polyethylene Acetabular Liner, Neutral, with a 32 mm inner diameter DePuy Alder Femoral stem with Porocoat, 12/14 taper, size 6 high offset 32 mm ceramic femoral head with +1 offset Postoperative course: Patient will be admitted to the hospital from the recovery room. Patient will be weightbearing as tolerated with posterior hip precautions. Aspirin for DVT prophylaxis I attest to the content of the Intraoperative Record and any orders documented therein. Any exceptions are noted below.
[2021-04-09] MEDS ORDERED: ceFAZolin 2000MG 2,000 MG/15 ML SYR IV ONE (09:06)
--- NOTE | 2021-04-09 09:06 | Operative Report ---
Post Operative Report Pre & Post Diagnosis Operation Date: 04/09/21 07:00 Pre-Op Diagnosis: Left Hip Osteoarthritis Post-Op Diagnosis: Left Hip Osteoarthritis I identified the patient and participated in the time-out.: Yes Procedure Operation Date: 04/09/21 07:00 Actual Procedures p Left Total Hip Arthroplasty(Left) - Aram Schwartz MD Surgeon Aram Schwartz MD School Bus Driver TAMAR Meza PA-C. No resident or fellow was available to assist. Estimated Blood Loss 100 Findings Consistent with Post-Op Diagnosis Specimens femoral head Description of Procedure I was present during the entire case assisting with positioning, prepping, draping, wound retraction, wound closure, dressing and abduction pillow placement. No fellow present. Please see Dr. Schwartz procedure note for specifics of the case. I attest to the content of the Intraoperative Record and any orders documented therein. Any exceptions are noted below.
[2021-04-09] MEDS ORDERED: NON-FORMULARY MEDICATION (Ibuprofen-Diphenhydramine Cit [Advil Pm] 200-38 mg Tablet) PO PRN (09:08)
--- NOTE | 2021-04-09 09:36 | Anesthesiology Progress Note ---
Date of Service April 09, 2021 Anesthesia Post Procedure Vital Signs Vital Signs: Temp Pulse Pulse Resp BP Pulse Ox 04/09/21 09:25 36.6 C 62 14 102/61 100 04/09/21 09:15 65 18 97/58 L 99 04/09/21 09:05 36.4 C L 66 18 98/56 L 100 04/09/21 06:16 37.0 C 73 18 124/76 96 Transfer of Care Handoff Completed per policy Notes Mental Status: alert / awake / arousable Patient Amnestic to Procedure: Yes Nausea / Vomiting: adequately controlled Pain: adequately controlled Airway Patency, RR, SpO2: stable & adequate BP & HR: stable & adequate Hydration State: stable & adequate Neuraxial Anesthesia: was administered and sensory block is resolving Anesthetic Complications: no major complications apparent and Pt Satisfied with anesthetic care
--- NOTE | 2021-04-09 09:59 | XRay Report ---
XR pelvis 1-2V routine CLINICAL HISTORY: Post Surgical. Status post left hip replacement COMPARISON STUDY: 03/24/2021 TECHNIQUE: [2 AP views of the pelvis were obtained. FINDINGS: The patient is status post interval left total hip replacement with noncemented components. The prosthetic components are in anatomic alignment with no acute abnormality. There is no evidence for an acute fracture. Stable right hip replacement is again seen. The SI joints are intact bilaterally. The remaining visualized bones of the pelvis are intact. No focal soft tissu e abnormalities identified. IMPRESSION: Status post left hip replacement. ACT 112: Negative or not required by law. Electronically signed by: Enoch Rizzo M.D. 04/09/2021 9:58 AM
[2021-04-09] MEDS ORDERED: oxyCODONE/ACETAMINOPHEN 5mg/325mg TAB PO ONE (10:52)
[2021-04-09] MEDS: oxyCODONE/ACETAMINOPHEN 5mg/325mg TAB PO PRN ×3 (10:54→22:00)
[2021-04-09] MEDS ORDERED: diphenhydrAMINE 50 MG/ML VIAL IV PRN (15:50)
[2021-04-09] MEDS ORDERED: ACETAMINOPHEN 325 MG TAB PO PRN (15:50)
[2021-04-09] MEDS ORDERED: ALUMINUM/MAGNESIUM SUSP 30 ML UDC PO PRN (15:50)
[2021-04-09] MEDS ORDERED: SODIUM CHLORIDE 0.9% 1000ML 1,000 ML IV SCH (16:00)
[2021-04-09] MEDS: Scopolamine CHECK PATCH PLACEMENT SCH ×2 (19:07→23:33)
[2021-04-09] MEDS: ASPIRIN 81 MG ECTAB PO SCH (20:40)
[2021-04-09] MEDS ORDERED: ASPIRIN 81 MG ECTAB PO SCH (21:00)
[2021-04-10 08:39] LABS: Hematocrit (blood only) 30.6 % (37-47); Hemoglobin 10.3 g/dL (12.0-16.0)
[2021-04-10] MEDS ORDERED: NON-FORMULARY MEDICATION (Cholecalciferol (Vitamin D3) 125 mcg (5,000 unit) capsule) PO SCH (09:00)
[2021-04-10] MEDS ORDERED: NON-FORMULARY MEDICATION (Ascorbic Acid (Vitamin C) [Vitamin C] 1,000 mg Tablet) PO SCH (09:00)
[2021-04-10] MEDS ORDERED: NON-FORMULARY MEDICATION (Multivit-Min-Iron-Fa-Lutein [Centrum Silver Women] 8 mg iron-400 PO SCH (09:00)
[2021-04-10] MEDS ORDERED: NON-FORMULARY MEDICATION (Coq10 (Ubiquinol) 200 mg Capsule) PO SCH (09:00)
[2021-04-10] MEDS ORDERED: CALCIU PO SCH (09:00)
[2021-04-10] MEDS ORDERED: [UNRECOGNIZED DRUG - OTHER] PO SCH (09:00)
[2021-04-10] MEDS ORDERED: CALCIUM PHOSPHATE VITAMIN D3 PO SCH (09:00)
[2021-04-10] MEDS ORDERED: FLUoxetine HCL 20 MG CAP PO SCH (09:00)
[2021-04-10 09:10] LABS: BUN Creatinine Ratio 30.8 (10-20); Calcium 8.8 mg/dl (8.5-10.1); Creatinine Clr Calc Pharmacy 94.3 ml/min; Est GFR (Non-African American) 93.2 ml/min; Potassium 4.1 mmol/L (3.5-5.1)
[2021-04-10] MEDS: Scopolamine CHECK PATCH PLACEMENT SCH ×2 (09:11→15:41)
[2021-04-10] MEDS: ASPIRIN 81 MG ECTAB PO SCH ×2 (09:12→20:05)
[2021-04-10] MEDS ORDERED: SODIUM CHLORIDE 0.9% 1000ML 1,000 ML IV ONE ×3 (11:23→23:57)
--- NOTE | 2021-04-10 11:37 | Orthopedic Progress Note ---
Date of Service April 10, 2021 Assessment & Plan (1) S/P total hip arthroplasty: Plan: PT/OT DVT prophylaxis with aspirin and FAITH stockings Pain control with p.o. medication Ice with easy wrap Keep Silverlon dressing in place Total hip precautions Weightbearing as tolerated with walker assistance Discussed today with Dr. Schwartz. He recommended that we place a consultation for internal medicine and order a 1 L normal saline solution bolus. Patient may not be able to be discharged today unless her pressure normalizes and the orthostatic hypotension resolves. Admission and Anticipated Discharge Date Admission Date: April 09, 2021 Subjective This 66-year-old female who is day 1 status post left total hip arthroplasty. She was initially scheduled to be an outpatient total joint however she developed hypotension when she tried to perform PT/OT protocol for discharge yesterday. She was admitted for an overnight stay, however she experienced hypotension again this morning when she attempted to stand up. She states that she also has a numb tingly sensation in her left lower extremity and feels that the spinal anesthesia is still having an effect. She denies chest pain, shortness of breath, fever, chills, sweats, lethargy, nausea, vomiting or diarrhea. She states she has been able to urinate. Review of Systems Review of Systems: All systems reviewed & are unremarkable except as noted in Subjective Physical Exam Physical Exam: Left hip; outer dressing was removed and Silverlon is in place. Is clean dry and intact. Patient is able to actively dorsi and plantarflex her foot. But she has difficulty performing a straight leg raise test. She has no pain with light passive flexion to 60 degrees as well as with light passive internal or external rotation. Logroll test causes no pain. She was able to detect light sensation to touch in her left lower extremity but states that it felt slightly numb. Her peripheral pulses were 2+. Her capillary refill was unable to be detected due to her nail english. Results & Data ([facility]) Vital Signs (Past 12 Hours) Vital Signs Temp Pulse Pulse Resp BP Pulse Ox 04/10/21 09:15 109/68 04/10/21 07:38 37.2 C 86 18 95/55 L 93 04/10/21 04:14 36.9 C 83 18 105/64 95 Diagnostic Findings Laboratory Results Hgb 10.3 g/dL (12.0-16.0) L 04/10/21 08:31 Hct 30.6 % (37-47) L 04/10/21 08:31 Sodium 135 mmol/L (136-145) L 04/10/21 08:31 Potassium 4.1 mmol/L (3.5-5.1) 04/10/21 08:31 Chloride 103 mmol/L (98-107) 04/10/21 08:31 Carbon Dioxide 28 mmol/L (21-32) 04/10/21 08:31 Anion Gap 4 (3-11) 04/10/21 08:31 BUN 20 mg/dl (6-23) 04/10/21 08:31 Creatinine 0.65 mg/dl (0.6-1.2) 04/10/21 08:31 Est Cr Clr Drug Dosing 94.3 ml/min 04/10/21 08:31 Est GFR ( Amer) 108.0 ml/min 04/10/21 08:31 Est GFR (Non-Af Amer) 93.2 ml/min 04/10/21 08:31 BUN/Creatinine Ratio 30.8 (10-20) H 04/10/21 08:31 Glucose 121 mg/dl (70-99(Fasting)) H 04/10/21 08:31 Calcium 8.8 mg/dl (8.5-10.1) 04/10/21 08:31 Impressions Pelvis X-Ray 04/09/21 09:06 XR pelvis 1-2V routine CLINICAL HISTORY: Post Surgical. Status post left hip replacement COMPARISON STUDY: 03/24/2021 TECHNIQUE: [2 AP views of the pelvis were obtained. FINDINGS: The patient is status post interval left total hip replacement with noncemented components. The prosthetic components are in anatomic alignment with no acute abnormality. There is no evidence for an acute fracture. Stable right hip replacement is again seen. The SI joints are intact bilaterally. The remaining visualized bones of the pelvis are intact. No focal soft tissue abnormalities identified. IMPRESSION: Status post left hip replacement. ACT 112: Negative or not required by law. Electronically signed by: Enoch Rizzo M.D. 04/09/2021 9:58 AM
--- NOTE | 2021-04-10 11:48 | Hospitalist Consultation ---
Date of Consultation April 10, 2021 Assessment & Plan (1) S/P total hip arthroplasty: EBL 100ml. Hemoglobin 13.1 -> 10.3. Pain management per primary orthopedic team (2) Orthostatic hypotension: Unclear why she is orthostatic after this surgery when she did well after her last THR in 2019. She denies being more dehydrated, change in diet or medications. However she has had COVID (3 weeks of illness) in the interim possible has less ability to maintain orthostasis post operatively. She has not received any pain medication today. Only related to standing up therefore unlikely heart arrythmia and no need for telemetry at this time. EKG with NSR and inverted/flattening T waves in anterior septal leads is not significantly different to pre-op EKG. Agree with NSS 1L bolus (currently receiving this). Repeat orthostatics following this and if still symptomatic give additional 1L NSS bolus. If remains symptomatic despite total 2L NSS bolus, recommend additional stay overnight, repeat Hgb in AM and will consider fludrocortisone if still symp tomatic tomorrow (this would likely be on a temporary basis with PCP follow up). Regardless recommend staying well hydrated at home and adding more salt to her diet (3) Syncope: Suspected orthostasis as above Glucose levels have been normal and not on an diabetic medications. (4) Depression: Continue her usual fluoxetine 40mg PO daily VTE Prophylaxis - ASA 81mg BID per ortho recommendations Diet - regular Disposition - continued stay on med/surg pending workup as above Thank you for the consult, will review patient later this afternoon after interventions above History of Present Illness Reason for Consultation: Hypotension Attending Physician: Aram Schwartz MD History of Present Illness Libia Angelo is a 66 year old female who presents as elective left total hip arthroplasty due to osteoarthritis performed yesterday (April 09) by Dr Noble. Estimated blood loss 100ml. Medicine consulted due to orthostasis that has been occurring post operatively. Occurred once yesterday and today when she tried to get up to her walker she became very dizzy. Yesterday she compl etely lost consciousness but today she managed to get back in bed soon enough but the sensation was the same severity. No vision, speech or hearing changes. No one sided extremity weakness. No chest pain or shortness of breath. She is currently back to her baseline while lying down. Question of tingling in her left leg ?related to spinal anesthesia in ortho note from today. She reports this has now resolved and appears to be related to her positing in bed causing her leg to go numb (" leg"). She is yet to have a bowel movement post operatively but does not feel constipated and is passing small amounts of gas. No nausea, vomiting or abdominal pain, urinary symptoms, fever or chills. Allergies Allergy/AdvReac Type Severity Reaction Status Date / Time med Allergy Intermediate nausea, Verified 04/09/21 05:50 headache Sulfa (Sulfonamide Allergy Intermediate nausea, Verified 04/09/21 05:50 Antibiotics) headache venlafaxine [From Effexor] AdvReac Intermediate difficulty Verified 04/09/21 05:50 concentrating, loss of focus Home Medications Medication Instructions Recorded Confirmed Type ascorbic acid (vitamin C) 1,000 mg 1 g PO QAM 06/13/19 04/09/21 History tablet (Vitamin C) calcium phosphate 250 mg-vit D3 2 tab PO QAM 06/13/19 04/09/21 History 12.5 mcg (500 unit) chewable tablet (Citracal-D3 Gummies) coQ10 (ubiquinol) 200 mg capsule 400 mg PO QAM 06/13/19 04/09/21 History multivit with 1 tab PO QAM 06/13/19 04/09/21 History pzdsjyiy-dslv-GV-lutein 8 mg iron-400 mcg-300 mcg tablet (Centrum Silver Women) ibuprofen-diphenhydramine citrate 2 cap PO HS PRN 12/06/19 04/09/21 History 200 mg-38 mg tablet (Advil PM) fluoxetine 40 mg capsule 40 mg PO QAM #90 cap 09/05/20 04/09/21 Rx cholecalciferol (vitamin D3) 125 125 mcg PO QAM 03/11/21 04/09/21 History mcg (5,000 unit) capsule Patient History Medical History Anxiety Depression Osteoarthritis Osteopenia Surgical History H/O laparoscopy R/T FERTILITY PROBLEMS History of section History of colonoscopy 2020 History of surgery on wrist LEFT/RT FX WRIST REPAIR History of tonsillectomy and adenoidectomy History of total right hip arthroplasty 9/17/20-Dr Schwartz Hx of abdominal surgery D/T ECTOPIC Uterine fibroid [place] teeth removed Family History Father Colon cancer Brother Polyp of sigmoid colon Mother CKD (chronic kidney disease) Sister Seizures Social History Smoking Status: Former smoker Cigarettes Per Day: 20; Smoking End Date: QUIT 5 YRS AGO; Second Hand Exposure: No; Do You Dip or Chew Tobacco: No; Hx Alcohol Use: No (Recovering alcoholic, 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) Hx Substance Use: No Preferred Language: B[place] Communication Ability: Effective Orchestra Musician Required: No Beliefs That Will Affect Care: None marital status: Current Living Situation: Spouse current occupational status: employed current occupation: [employer] Other Information That Helps Us Care for You: No Feels Safe at Home: Yes Safety Concerns: Feels Safe At This Time Childhood Exposure to Second-Hand Smoke: No Diet Comment: healthy diet caffeine: Yes Dental Care, Regularly: Yes Physical Activity Frequency: Daily Seatbelt Use: always Sunscreen Use: Yes Assistive Devices: Walker Assistive Devices Comment: WILL WEAR GLASSES DOS Review of Systems Review of Systems: All systems reviewed & are unremarkable except as noted in HPI & below Ear, Nose, Mouth, Throat: + sore throat Physical Exam Constitutional: WD/WN, vitals as above Eyes: PERRL, conjunctivae normal, anicteric sclerae ENMT: Mouth: + dry oral mucous membranes Throat: no posterior oropharynx abnormality Respiratory: normal respiratory effort, lungs clear to auscultation Cardiovascular: Rate/Rhythm: regular rate and regular rhythm Heart Sounds: no murmur Vessels: dorsalis pedis pulses present (b/l) and radial pulses present (b/l) Extremities: normal capillary refill; no calf tenderness and no pedal edema Gastrointestinal (Abdomen): Inspection/Auscultation: normal bowel sounds Percussion/Palpation: abdomen soft; abdomen nontender Skin: no rashes, warm and dry Neurologic: moves all extremities and awake; no focal motor deficits (no lateralizing weakness) and not confused Motor/Sensory: no tremor Psychiatric: A+Ox3, euthymic affect Results & Data Results & Data ([place]) Vital Signs (Past 12 Hours) Vital Signs Temp Pulse Pulse Resp BP Pulse Ox 04/10/21 09:15 109/68 04/10/21 07:38 37.2 C 86 18 95/55 L 93 04/10/21 04:14 36.9 C 83 18 105/64 95 PG Care Time/CCT Total # of Minutes Spent Total Time Spent with Patient: Total time spent is greater than 50% in coordination of care (as documented) at patient's floor/unit and/or counseling patient: Coding Level of Care Code 31047 Inpt Consult Level 4 Diagnoses Depression F32.9 S/P total hip arthroplasty Z96.649 Orthostatic hypotension I95.1 Syncope R55
[2021-04-10] MEDS ORDERED: ONDANSETRON INJ 2 MG/ML 2 ML VIAL IV PRN (13:49)
[2021-04-10 13:59] LABS: Appearance Urine Clear (Clear); Bacteria Urine Automated Negative (Negative); Bilirubin Urine Negative (Negative); Blood Urine Negative (Negative); Cast Urine Automated 0 /lpf (0-5); Color Urine Yellow; Epithelial Cell Urine Auto >30 /lpf (0-5); Glucose Urine UA Negative (Negative); Ketones Urine Negative (Negative); Leukocyte Esterase Urine Trace (Negative); Nitrite Urine Negative (Negative); Protein Urine Negative (Negative); RBC Urine Automated 0-4 /hpf (0-4); Specific Gravity Urine 1.006 (1.000-1.030); Urobilinogen Urine Negative (Negative)
[2021-04-10] MEDS: FLUoxetine HCL 20 MG CAP PO SCH (14:27)
--- NOTE | 2021-04-10 15:27 | Electrocardiogram Report ---
Test Reason : Blood Pressure : / mmHG Vent. Rate : 063 BPM Atrial Rate : 063 BPM P-R Int : 132 ms QRS Dur : 098 ms QT Int : 396 ms P-R-T Axes : 055 062 066 degrees QTc Int : 405 ms Normal sinus rhythm Nonspecific T wave abnormality Abnormal ECG When compared with ECG of 24-MAR-2021 15:08, No significant change Confirmed by Rene Feliciano ([id number]) on 04/10/2021 3:27:02 PM Referred By: Aram Schwartz Confirmed By:Rene Feliciano
[2021-04-10] MEDS: oxyCODONE/ACETAMINOPHEN 5mg/325mg TAB PO PRN (22:25)
[2021-04-11] MEDS: Scopolamine CHECK PATCH PLACEMENT SCH (00:13)
--- NOTE | 2021-04-11 01:31 | Communication Note ---
Date of Service: April 11, 2021 Contacted overnight by nursing staff for hypotension. Patient was given a total of 2L NSS and BP still noted to be 80s-90s systolic. HR in 80s. Patient reports feeling well, no increased pain in hip, no sensation of dizziness or lightheadedness with standing. Examination of hip did not reveal excessive swelling or hematoma. Given post op Hgb 10.3 with baseline 1 month earlier of 13 did order a repeat H/H with Hgb 8.2. Given this precipitous drop in Hgb did discuss giving PRBCs x1 unit with patient, she is amenable to this plan. Also will get CTAP, CT left hip to evaluate for hematoma / retroperitoneal bleeding, negative for both. Hemoccult pending. Patient transferred to Med/Tele. Resident Activity Tracking Resident Involvement: Resident Care Provided Care Provided: [facility] Medicine
[2021-04-11 01:52] LABS: Hematocrit (blood only) 25.2 % (37-47); Hemoglobin 8.2 g/dL (12.0-16.0)
[2021-04-11] MEDS ORDERED: SODIUM CHLORIDE 0.9% 250 ML IV PRN (02:28)
--- NOTE | 2021-04-11 07:07 | CT Scan Report ---
CT SCAN OF THE ABDOMEN AND PELVIS WITHOUT IV CONTRAST; CT SCAN OF THE LEFT HIP WITHOUT IV CONTRAST CLINICAL HISTORY: Anemia. Recent left hip surgery. COMPARISON STUDY: Pelvic radiograph dated 04/09/2021. Chest CT dated 10/23/2020. TECHNIQUE: CT scan of the abdomen and pelvis is performed from the lung bases to the proximal femora. Additionally, CT scan of the left hip is performed from the bony pelvis to the femoral shaft. Images for both examinations are reviewed in the axial, sagittal, and coronal planes. IV contrast was not a dministered for this examination. Note that the examination is suboptimal without oral and IV contras t. A dose lowering technique was utilized adhering to the principles of ALARA. CT DOSE: 1562.98 mGy.cm FINDINGS: Lung bases: The heart is mildly enlarged and without pericardial effusion. There are trace pleural ef fusions with dependent atelectasis. Intralobular septal thickening is noted at the lung bases. A 6 mm right middle lobe pulmonary nodule is seen on image #32. This is unchanged from recent prior chest C Ts. There is a small hiatal hernia. Liver: The unenhanced liver is normal in size, contour, and attenuation. There is no intrahepatic marisa iary ductal dilatation. Gallbladder: Unremarkable. Spleen: Normal in size and attenuation. Pancreas: The unenhanced pancreas is grossly unremarkable. Adrenal glands: Unremarkable. Kidneys: The unenhanced kidneys are normal in size and without hydronephrosis. There are no renal sherry culi identified. There is no evidence of contour deforming renal mass lesion. Abdominal vasculature: The abdominal aorta is normal in course and caliber noting moderate atheroscle rotic calcification. Bowel: There is no bowel obstruction. Mild fecal retention is seen throughout the colon. The appendix is well-visualized and normal. Peritoneum/retroperitoneum: There is trace free fluid in the pelvis. No intraperitoneal free air is i dentified. There is no retroperitoneal hemorrhage. Lymphadenopathy: None. Pelvic viscera: Evaluation of the pelvis is significantly degraded by streak artifact from bilateral hip arthroplasties. The bladder, uterus, and adnexa are normal as visualized. Skeletal structures: The skeletal structures are osteopenic. There is mild lumbosacral spondylosis. N o lytic or blastic lesions are seen. Bilateral arthroplasties are in place. See below for dedicated d iscussion of the left hip. LEFT HIP: A bipolar left hip arthroplasty is in near-anatomic alignment. Streak artifact from the art hroplasty significantly degrades assessment stranding tissues. There is no evidence of periprosthetic fracture involving the left proximal femur. Foci of subcutaneous gas, fluid, and hemorrhage overlyin g the left proximal femur are expected postoperative changes. No large hematoma is identified. IMPRESSION: 1. Cardiomegaly with interlobular septal thickening at the lung bases and trace pleural effusions. Co rrelate clinically for evidence of fluid overload/congestive failure. 2. Trace free fluid is seen in the pelvis. 3. There is no retroperitoneal hemorrhage. 4. Bilateral hip arthroplasties are in place. There is no evidence of periprosthetic fracture involvi ng the left proximal femur. 5. Foci of hemorrhage, soft tissue gas, and edema overlying the left hip arthroplasty are expected po stoperative changes. 6. No large hematoma is identified in the left upper thigh. 7. Additional findings as above. ACT 112: Negative or not required by law. Electronically signed by: Johan Giordano M.D. 04/11/2021 7:06 AM
[2021-04-11] MEDS: FLUoxetine HCL 20 MG CAP PO SCH (08:00)
--- NOTE | 2021-04-11 09:23 | Hospitalist Progress Note ---
Date of Service April 11, 2021 Assessment & Plan (1) S/P total hip arthroplasty: Plan: acute blood loss anemia post operatively Hemoglobin 13.1 -> 10.3-> 8.2- >transfusion -> 10.2 Pain management per primary orthopedic team (2) Orthostatic hypotension: Plan: symptomatic lower blood pressures, was given nss bolus (3) Syncope: Plan: Suspected orthostasis as above Glucose levels have been normal (4) Depression: Plan: Continue her usual fluoxetine 40mg PO daily Plan: VTE Prophylaxis - ASA 81mg BID per ortho recommendations Diet - regular Disposition - continued stay on med will need to assure is stable with regard to performance to be discharged\< PT evaluation feels additional day or so constipation will add senna Admission and Anticipated Discharge Date Admission Date: April 09, 2021 Subjective Patient doing well feeling slightly tired blood pressure is soft but with maps consistently above 85. Did receive a transfusion of blood hemoglobin stable at 10.3 Review of Systems Review of Systems: Mild distress and fatigue no headache, no visual changes no speech or swallowing issues no chest pain, pressure or palpitations no shortness of breath, cough or wheezes no abdominal pain, nausea or vomiting, diarrhea or constipation no dysuria, hematuria or frequency Recovering left total hip arthroplasty with appropriate postoperative pain no back pain, CVA tenderness or radicular pain no bruising, bleeding or rashes no focal signs of weakness or numbness or altered sensation no complaints of anxiety or depression.. Physical Exam Physical Exam: The patient appeared well nourished and normally developed. Vital signs as documented. Head exam is normocephalic atraumatic Neck is without JVD, thyromegaly, or carotid bruits. Lungs are clear to auscultation, no focal loss of breath sounds Cardiac exam, Rhythm is regular.. No murmurs, rubs or gallops. Abdominal exam reveals normal bowel sounds, soft non tender, no masses Left hip as incision and intact distal pulses intact capillary refill intact minimal swelling Neurologic exam is alert and oriented, no focal loss of strength or sensation Skin is without bruises or rashes Psychologically is without concerns for anxiety or depression.. Results & Data Results & Data ([facility]) Vital Signs (Past 12 Hours) Vital Signs Temp Pulse Pulse Pulse Resp BP BP 04/11/21 07:40 98.8 F 78 16 105/50 L 04/11/21 06:20 99.5 F 72 18 93/55 L 04/11/21 05:50 97.7 F 72 18 101/57 L 04/11/21 05:38 72 04/11/21 05:20 99.5 F 76 16 93/53 L 04/11/21 05:05 98.4 F 77 16 90/53 L 04/11/21 04:50 98.6 F 75 16 94/57 L 04/11/21 04:15 76 04/11/21 02:31 76 04/11/21 01:16 84/46 L 04/10/21 22:11 99.1 F 86 16 BP Pulse Ox 04/11/21 07:40 96 04/11/21 06:20 94 04/11/21 05:50 94 04/11/21 05:38 04/11/21 05:20 95 04/11/21 05:05 93 04/11/21 04:50 92 04/11/21 04:15 93/54 L 04/11/21 02:31 89/55 L 91 04/11/21 01:16 04/10/21 22:11 101/61 96 PG Care Time/CCT Total # of Minutes Spent Total Time Spent with Patient: Total time spent is greater than 50% in coordination of care (as documented) at patient's floor/unit and/or counseling patient: Coding Level of Care Code 80163 Subseq Hosp Care Lvl 2 Diagnoses S/P total hip arthroplasty Z96.649 Orthostatic hypotension I95.1 Syncope R55 Depression F32.9
--- NOTE | 2021-04-11 09:50 | Orthopedic Progress Note ---
Date of Service April 11, 2021 Assessment & Plan (1) S/P total hip arthroplasty: Plan: Appreciate internal medicine assistance with Ms. Angelo. Treatment of hypotension per internal medicine. PT/OT DVT prophylaxis with aspirin and FAITH stockings Pain control with p.o. medication Ice with easy wrap Keep Silverlon dressing in place Total hip precautions Weightbearing as tolerated with walker assistance May discharge home today if cleared by internal medicine and passes PT/OT. (2) Orthostatic hypotension: Admission and Anticipated Discharge Date Admission Date: April 09, 2021 Subjective This 66-year-old female who is day 2 status post left total hip arthroplasty. Yesterday she continued to get orthostatic hypotension when standing. Overnight, her H&H dropped to 8. CT CAP was negative for retroperitoneal bleeding. She was given 1 unit PRBC's. This morning, she reports she feels about the same. Continues to have minimal pain in her left hip. She denies chest pain, shortness of breath, fever, chills, sweats, lethargy, nausea, vomiting or diarrhea. Physical Exam Physical Exam: Resting comfortably in bed in NAD. L hip: dressing c/d/i. Mild swelling appropriate for this stage post- operatively. Distally NVI. Results & Data ([facility]) Vital Signs (Past 12 Hours) Vital Signs Temp Pulse Pulse Pulse Resp BP BP 04/11/21 09:15 36.8 C 76 16 115/69 04/11/21 08:50 36.8 C 76 16 115/69 04/11/21 07:50 37.0 C 78 16 105/50 L 04/11/21 07:40 37.1 C 78 16 105/50 L 04/11/21 06:50 36.8 C 76 16 108/68 04/11/21 06:20 37.5 C 72 18 93/55 L 04/11/21 05:50 36.5 C 72 18 101/57 L 04/11/21 05:38 72 04/11/21 05:20 37.5 C 76 16 93/53 L 04/11/21 05:05 36.9 C 77 16 90/53 L 04/11/21 04:50 37 C 75 16 94/57 L 04/11/21 04:15 76 04/11/21 02:31 76 04/11/21 01:16 84/46 L 01/21/22 22:11 37.3 C 86 16 BP Pulse Ox 04/11/21 09:15 95 04/11/21 08:50 95 04/11/21 07:50 98 04/11/21 07:40 96 04/11/21 06:50 04/11/21 06:20 94 04/11/21 05:50 94 04/11/21 05:38 04/11/21 05:20 95 04/11/21 05:05 93 04/11/21 04:50 92 04/11/21 04:15 93/54 L 04/11/21 02:31 89/55 L 91 04/11/21 01:16 04/10/21 22:11 101/61 96
[2021-04-11 10:56] LABS: Basophils # (auto) 0.02 K/uL (0-0.2); Basophils % (auto) 0.2 %; Eosinophils # (auto) 0.02 K/uL (0-0.5); Eosinophils % (auto) 0.2 %; Hematocrit (blood only) 30.8 % (37-47); Hemoglobin 10.3 g/dL (12.0-16.0); Immature Granulocytes # (auto) 0.04 K/uL (0.00-0.02); Immature Granulocytes % (auto) 0.3 %; Lymphocytes # (auto) 2.08 K/uL (1.2-3.4); Lymphocytes % (auto) 17.1 %; Mean Corpuscular Hgb Conc 33.4 g/dL (32-36); Mean Corpuscular Volume 95.7 fL (80-100); Mean Platelet Volume 10.2 fL (7.4-10.4); Monocytes # (auto) 1.38 K/uL (0.11-0.59); Monocytes % (auto) 11.3 %; Neutrophils # (auto) 8.62 K/uL (1.4-6.5); Neutrophils % (auto) 70.9 %; Platelet Count 187 K/uL (130-400); RDW Coefficient of Variation 13.6 % (11.5-14.5); RDW Standard Deviation 47.6 fL (36.4-46.3); Red Blood Count 3.22 M/uL (4.2-5.4); White Blood Count 12.16 K/uL (4.8-10.8)
[2021-04-11] MEDS ORDERED: DOCUSATE SODIUM/SENNA 50/8.6MG TAB PO PRN (16:59)
--- NOTE | 2021-04-11 19:46 | Orthopedic Progress Note ---
Date of Service April 11, 2021 Assessment & Plan (1) S/P total hip arthroplasty: Plan: Patient was evaluated in her room this evening. Pressures this afternoon have been in the 115-105 systolically while sitting in bed. I did speak with Dr. Marc regarding her stay. He recommended an additional night stay to allow her pressures to normalize. Patient states she feels well at this time. We will see how she does in PT/OT tomorrow and hopefully, with the improved hemoglobin, she has no further episodes of orthostatic hypotension. Admission and Anticipated Discharge Date Admission Date: April 09, 2021 Subjective Patient is seen in her room this evening. She states she feels well. She did get out of bed earlier today, and states she became very fatigued just going to the bathroom and back. She did participate in physical therapy today, but had a drop in her blood pressure again. It was reportedly 84/51. She has no other complaints at this point. She feels as though her bowels are starting to move. Physical Exam Physical Exam: General: Well-developed, well-nourished, middle-aged female, in no acute distress. Conversive. Skin: Warm and dry with good turgor. Good color to her face. Left hip dressing is intact and dry. Musculoskeletal: Patient has intact motor function to her hip, knee, and ankle. . Neurologic: Gross sensation is intact across the left leg by soft touch. Peripheral pulses are 2+. Results & Data ([facility]) Vital Signs (Past 12 Hours) Vital Signs Temp Pulse Pulse Resp BP BP Pulse Ox 04/11/21 15:20 36.8 C 89 18 105/67 96 04/11/21 14:55 75 04/11/21 11:24 37.0 C 70 20 103/65 97 04/11/21 09:15 36.8 C 76 16 115/69 95 04/11/21 08:50 36.8 C 76 16 115/69 95 04/11/21 08:00 79 04/11/21 07:50 37.0 C 78 16 105/50 L 98 Laboratory Results H&H after transfusion is 10.3 and 30.8.
[2021-04-11] MEDS: oxyCODONE/ACETAMINOPHEN 5mg/325mg TAB PO PRN (21:49)
[2021-04-12 06:11] LABS: Hematocrit (blood only) 31.6 % (37-47); Hemoglobin 10.4 g/dL (12.0-16.0); Mean Corpuscular Hgb Conc 32.9 g/dL (32-36); Mean Corpuscular Volume 97.2 fL (80-100); Mean Platelet Volume 10.6 fL (7.4-10.4); Platelet Count 205 K/uL (130-400); RDW Coefficient of Variation 13.8 % (11.5-14.5); RDW Standard Deviation 49.4 fL (36.4-46.3); Red Blood Count 3.25 M/uL (4.2-5.4)
[2021-04-12 06:44] LABS: Basophils # (auto) 0.04 K/uL (0-0.2); Basophils % (auto) 0.4 %; Eosinophils # (auto) 0.06 K/uL (0-0.5); Eosinophils % (auto) 0.6 %; Immature Granulocytes # (auto) 0.01 K/uL (0.00-0.02); Immature Granulocytes % (auto) 0.1 %; Lymphocytes # (auto) 2.06 K/uL (1.2-3.4); Lymphocytes % (auto) 19.4 %; Monocytes # (auto) 1.09 K/uL (0.11-0.59); Monocytes % (auto) 10.3 %; Neutrophils # (auto) 7.34 K/uL (1.4-6.5); Neutrophils % (auto) 69.2 %
[2021-04-12] MEDS ORDERED: SODIUM CHLORIDE 1 GM TABLET PO ONE (07:09)
[2021-04-12] MEDS: FLUoxetine HCL 20 MG CAP PO SCH ×2 (07:24→07:28)
[2021-04-12 07:58] LABS: BUN Creatinine Ratio 17.4 (10-20); Calcium 8.2 mg/dl (8.5-10.1); Creatinine Clr Calc Pharmacy 141.5 ml/min; Est GFR (Non-African American) 104.4 ml/min; Potassium 3.4 mmol/L (3.5-5.1)
--- NOTE | 2021-04-12 09:26 | Orthopedic Progress Note ---
Date of Service April 12, 2021 Assessment & Plan (1) S/P total hip arthroplasty: Plan: Patient was educated regarding today's findings. Her lab values look good. Hopefully she can be discharged home today. We will see how she does in therapy and whether her hypotension returns. Patient denies having any systolic readings in the 50s prior to surgery. She is eating and drinking well at this point. She already has her postop visit in the office for staple removal. I will check on her again later today. Admission and Anticipated Discharge Date Admission Date: April 09, 2021 Subjective Patient is seen in her room this morning. She is awake and denies any discomfort. She states she did take 2 tablets of pain medication around 10 PM last night. Of note, it appears she had a drop in blood pressure at around midnight 93/50. This morning her pressure is 110/73. He denies any complaints at this point. She states she is looking forward to getting out of bed and sitting in a chair. She is hoping to participate in therapy today. Physical Exam Physical Exam: General: Well-developed, well-nourished, middle-aged female, in no acute distress. Sitting in her bed. Alert and oriented. Conversant. Skin: Warm and dry with good turgor. No rashes. No ecchymosis. Her Silverlon dressing is in place on the left hip. No drainage. Musculoskeletal: Patient is able to set her quad. She is able to perform a straight leg lift. Intact motor function to her ankle and toes. No discomfort with logrolling of the hip. Neurologic: Gross sensation is intact across both lower extremities by soft touch. Results & Data ([facility]) Vital Signs (Past 12 Hours) Vital Signs Temp Pulse Pulse Resp BP Pulse Ox 04/12/21 07:37 37.5 C 78 18 110/73 96 04/12/21 03:44 36.7 C 77 18 107/58 L 97 04/12/21 02:35 85 04/11/21 23:59 36.8 C 74 16 93/50 L 95 Laboratory Results H&H this morning are better than yesterday at 10.4 and 31.6. White count normal at 10.6. Potassium 3.4, chloride 108, BUN 8, creatinine 0.46, glucose 107, cortisol level this morning is 13.78, which is within normal range.
[2021-04-12] MEDS: oxyCODONE/ACETAMINOPHEN 5mg/325mg TAB PO PRN (10:13)
--- NOTE | 2021-04-12 17:55 | Hospitalist Progress Note ---
Date of Service April 12, 2021 Assessment & Plan (1) S/P total hip arthroplasty: Plan: acute blood loss anemia post operatively Hemoglobin 13.1 -> 10.3-> 8.2- >transfusion -> 10.2 Patient be discharged home physical therapy (2) Orthostatic hypotension: Plan: symptomatic lower blood pressures, was given nss bolus patient is intact random cortisol in the morning blood pressure was much better likely prolonged effect of anesthesia and fluid shifts from inflammation and volume loss (3) Syncope: Plan: Suspected orthostasis as above Glucose levels have been normal (4) Depression: Plan: Continue her usual fluoxetine 40mg PO daily Plan: patient stable to be discharged home Admission and Anticipated Discharge Date Admission Date: April 09, 2021 Subjective Patient is seen in her room this morning. She is awake and denies any discomfort. Patient's blood pressure been stable she is not orthostatic she was able to participate in physical therapy without any orthostasis she was approved to go home and medical standpoint patient work-up is required for her lower blood pressure this was postoperative condition which has resolved Review of Systems Review of Systems: Mild distress and fatigue no headache, no visual changes no speech or swallowing issues no chest pain, pressure or palpitations no shortness of breath, cough or wheezes no abdominal pain, nausea or vomiting, diarrhea or constipation no dysuria, hematuria or frequency Recovering left total hip arthroplasty with appropriate postoperative pain no back pain, CVA tenderness or radicular pain no bruising, bleeding or rashes no focal signs of weakness or numbness or altered sensation no complaints of anxiety or depression.. Physical Exam Physical Exam: The patient appeared well nourished and normally developed. Vital signs as documented. Head exam is normocephalic atraumatic Neck is without JVD, thyromegaly, or carotid bruits. Lungs are clear to auscultation, no focal loss of breath sounds Cardiac exam, Rhythm is regular.. No murmurs, rubs or gallops. Abdominal exam reveals normal bowel sounds, soft non tender, no masses Left hip as incision and intact distal pulses intact capillary refill intact left thigh is swollen likely related to some fluid and blood loss Neurologic exam is alert and oriented, no focal loss of strength or sensation Skin is without bruises or rashes Psychologically is without concerns for anxiety or depression.. Results & Data Results & Data ([facility]) Vital Signs (Past 12 Hours) Vital Signs Temp Pulse Pulse Resp BP BP Pulse Ox 04/12/21 12:06 98.1 F 75 18 110/73 93/54 L 98 04/12/21 11:02 98.1 F 75 18 110/73 98 04/12/21 08:00 79 04/12/21 07:37 99.5 F 78 18 110/73 96 PG Care Time/CCT Total # of Minutes Spent Total Time Spent with Patient: Total time spent is greater than 50% in coordination of care (as documented) at patient's floor/unit and/or counseling patient: Coding Level of Care Code 70172 Subseq Hosp Care Lvl 2 Diagnoses S/P total hip arthroplasty Z96.649 Orthostatic hypotension I95.1 Syncope R55 Depression F32.9
--- NOTE | 2021-04-13 12:04 | Discharge Summary ---
Date of Service April 13, 2021 Admission HPI Per Admitting Provider History of Present Illness (including history relevant to procedure): This 66-year-old female presents to the clinic today for her preoperative history and physical. She has been experiencing significant left-sided hip pain since early 2020. Patient had a right hip replaced back at the end of 2019 and is doing extremely well. She states the pain in her left hip is very close to the pain she experienced before undergoing the right hip replacement. Left hip bothers her every night when she is trying to sleep. Getting up and down out of a chair or in and out of car causes pain in her groin. Patient states that she is used [id number] anti-inflammatory agents with only minimal relief. She has been doing exercises that she did after her right total hip replacement and they are causing significant pain in her left hip. It is affecting quite a bit of her activities of daily living Review Of Systems: 12 point review of systems is performed and is unremarkable except for those things stated in the HPI and past medical history. Past Medical History: Problems: Osteoarthritis of left hip S/P total hip arthroplasty Preop examination Seborrheic keratoses Melanocytic nevus of trunk Hip osteoarthritis Inflamed seborrheic keratosis Acne Procedure History Procedure Procedure Date Comments Hip replacement - R Shave biopsy of skin 06/25/2013 - right and left cheek Surgery 2002 - left wrist fracture Allergies and Sensitivities: mangoes(nauseaded) Effexor(dizzy) Effexor(foggy) sulfa drugs(headache) Social history: Patient denies tobacco or illicit drug use. She states that she was a pack per day smoker but quit 8 years ago. Family history: Cancer Current Home Meds: (Last Updated 03/26 16:57) amoxicillin (amoxicillin 500 mg oral capsule) TAKE 4 CAPS BY MOUTH I NDICATED,INSTR:ONE HOUR BEFORE DENTAL AND OTHER PROCEDURES DIRECTED calcium and vitamin D combination (Caltrate 600 + D) 1 tab PO Daily diclofenac (diclofenac sodium 75 mg oral delayed release tablet) 75 mg PO bid PRN: as needed for pain with food fluoxetine (FLUoxetine 40 mg oral capsule) 40 mg PO Daily multivitamin 1 tab PO Daily ondansetron (Zofran 4 mg oral tablet) 4 mg PO q8h oxyCODONE (oxyCODONE 5 mg oral tablet) 10 mg PO q4h PRN: as needed for pain Initial RxPost operative pain control senna (Senokot 8.6 mg oral tablet) 8.6 mg PO qhs with plenty of water ubiquinone (CoQ10) Initial Wt: 03/24 78.0 kg 172 lb Admission Exam Per Admitting Provider Physical Exam: (relevant to the procedure, including heart and lung evaluation) General: Alert and oriented x3 with proper grooming and hygiene Eyes: Pupils are equal and reactive to light with accommodation. Extraocular movements are intact Throat: Deferred due to COVID-19 precautions Cardiac: Regular rate and rhythm with a grade 2/6 holosystolic murmur heard best over the left upper sternal border. No gallops appreciated Lungs: Clear to auscultation throughout with no wheezing, rales or rhonchi Abdomen: Nonobese, nondistended, nontender with NABS Extremities: Left hip; flexion is limited to 110 degrees. External rotation to 40 degrees and internal rotation to 5 degrees with referred pain to the groin area. ERIS test is positive. Logroll test is negative however Stinchfield and scour/impingement tests are positive during today's visit. Patient is neurovascularly intact in left lower extremity. Neuro: Cranial nerves II through XII are intact with no motor or sensory deficit Skin: Normal appearance no open skin areas of discharge Principal Diagnosis Left Hip Osteoarthritis Discharge Exam General: Well-developed, well-nourished, middle-aged female, in no acute distress. Sitting in her bed. Alert and oriented. Conversant. Skin: Warm and dry with good turgor. No rashes. No ecchymosis. Her Silverlon dressing is in place on the left hip. No drainage. Musculoskeletal: Patient is able to set her quad. She is able to perform a straight leg lift. Intact motor function to her ankle and toes. No discomfort with logrolling of the hip. Neurologic: Gross sensation is intact across both lower extremities by soft touch. Discharge Data Allergies Allergy/AdvReac Type Severity Reaction Status Date / Time med Allergy Intermediate nausea, Verified 04/09/21 05:50 headache Sulfa (Sulfonamide Allergy Intermediate nausea, Verified 04/09/21 05:50 Antibiotics) headache venlafaxine [From Effexor] AdvReac Intermediate difficulty Verified 04/09/21 05:50 concentrating, loss of focus Consultations 04/10/21 11:22 Consult Internal Medicine Routine Procedures Performed Operation Date: 04/09/21 07:00 Actual Procedures p Left Total Hip Arthroplasty(Left) - Aram Schwartz MD Ordered Studies 04/11/21 02:20 CT abd pelvis wo con Urgent CT hip LT wo con Urgent Hospital Course (1) S/P total hip arthroplasty: Patient was initially scheduled to be an outpatient total joint, however she developed orthostatic hypotension that required admission. Medicine service was consulted due to continuation of this issue and ultimately required blood transfusion due to drop in HgB after receiving NSS boluses to increase her volume. Patient was cleared medically on Tuesday04/12/20 and was discharged home with in-home health services. Appreciate internal medicine assistance with Ms. Angelo. Treatment of hypotension per internal medicine. PT/OT DVT prophylaxis with aspirin and FAITH stockings Pain control with p.o. medication Ice with easy wrap Keep Silverlon dressing in place Total hip precautions Weightbearing as tolerated with walker assistance May discharge home today if cleared by internal medicine and passes PT/OT. (2) Orthostatic hypotension: Total Time Total Time Spent Total Time Spent (In Minutes): 20 mins Discharge Plan Discharge Items Patient Disposition: Home - Home Health Services Reason For Visit: HYPOTENSIVE EPISODES FOLLOWING LEFT AGNES Discharge Diagnosis: Left Hip Osteoarthritis Condition on Discharge: Good Activity: As commented below Lifting: Wait until after follow-up appointment Bathing: Keep incision dry Bathing Comment: May shower tomorrow Sexual Activity: Wait until after follow-up appointment Exercise/Sports: Wait until after follow-up appointment Driving/Machine Use: No driving until cleared by Dr. Schwartz Weightbearing: Full weightbearing Weightbearing Comment: as tolerated with walker assistance Non-emergency contact: Surgeon Call non-emergency contact if: you have any medication questions, your pain is not controlled, your temperature is above 101.5, your wound has increased redness, your wound has increased drainage and your wound pain has increased Follow-up/Referrals: [facility] [Outside] (as per surgeon's office ) Pancho Moody MD [Physician] - Diet: Regular Addtl Attending Provider Instructions: Post-operative Instructions Dear Patient and Family/Friends, Before you are discharged from the hospital, it is important to know what to expect when you get home after surgery. To that end, we have created this sheet of discharge instructions which covers many commonly asked questions. Make sure you go through this sheet in its entirety with your nurse before you are discharged. Please note that we will go over the specifics of your surgery and recovery when you return for your first post-operative visit. Sincerely, Dr. Schwartz Medications A prescription for Cephalexin 500 mg was sent to your pharmacy. Please pickle solution maker and take 3 tabs daily for the next 5 days for infection prevention. Pain Expect to be in a fair amount of pain after surgery. Remember, our goal is not to eliminate your pain, but to make it tolerable. It is a good idea to stay ahead of your pain by taking the medications you were prescribed once you get home. Typically, the pain starts improving 3-7 days after surgery. You should start weaning off the narcotic pain medication (oxycodone, hydrocodone, hydromorphone, morphine) as soon as your pain improves. Please call our office if your pain is not adequately controlled. Ice Ice your operative site at least 5 times a day for 15-30 minutes at a time. Make sure you have a thin cloth between the ice or cooling unit and your skin to prevent monroe bite. This is especially important if you received a nerve block. Continue icing your operative site for the first 5-7 days after surgery, then as needed. Diet/Nausea/Vomiting Start by drinking clear liquids and eating crackers. If you can tolerate this, then you may resume your normal diet. If you feel nauseated or vomit, take Zofran/ondansetron (if prescribed). Please call our office if you have intractab le nausea or vomiting, or, if after hours, you may go to the Emergency Room for help. Constipation Constipation is a common side effect of narcotic pain medication. If you have not had a bowel movement within 2 days after surgery, we recommend purchasing an over the counter laxative such as Milk of Magnesia, Dulcolax, or Miralax from a local pharmacy, and taking it as instructed. Call our clinic if any questions. Nerve block The anesthesia team sometimes places a nerve block to help with post-operative pain control. This results in significant numbness and inability to move the extremity. The nerve block usually wears off in 8-12 hours, but sometimes can last up to 24 hours. Please call our office if you are still unable to move yo ur extremity after 24 hours, unless you received a pain pump to take home. Nerve blocks typically wear off quickly, so start taking pain medication as soon as you start feeling soreness near your surgical site. Weight bearing and Range of Motion. Do not bear any weight through your operative extremity immediately after surgery. If you had upper extremity surgery, do not lift anything with that arm. If you are in a knee brace, keep it locked in place until your follow-up. We will discuss your weight bearing, range of motion, and lifting restrictions in detail at your first post-operative appointment. Continuous Passive Motion (CPM) Machine If you were prescribed a CPM machine, it will start after your first post- operative appointment, at which time we will give you instructions on the range of motion settings and duration of treatment Physical therapy You will be given a prescription for physical therapy or occupational therapy at your first post-operative appointment. Typically, patients start therapy within 1 week of surgery Wound care and showering We will inspect your wound at your first post-operative visit, and may do a dressing change at that time. Most patients will be in a water-proof dressing that is removed 14 days after surgery. It is normal to see some dried blood on the dressing. Do not remove your dressing, paper strips or sutures yourself unless you are given permission. Showering is allowed the day after surgery. Do not scrub or remove any dressings. The wound should not be submerged underwater (i.e. in a bathtub or pool) until 4 weeks after surgery FAITH stockings If you were given white stockings, these are to be worn at all times except to shower (on both legs) for the first 2 weeks after surgery. Driving You may not drive while taking narcotic pain medication or while in a cast, splint, sling or brace. You, the patient, need to make the final determination about when you are safe to drive, however, the earliest you may consider driving after surgery is below: Hand/Wrist/Elbow Surgery: 3 days Shoulder Surgery: 2 weeks Hip,/Knee/Ankle Surgery: 4 weeks Fracture repair: 6 weeks Return to Work Your return to work depends on what surgery was done and what type of work you do. Please bring any paperwork your employer needs completed to your first post-operative visit. Also, bring a description of your job duties, as this helps us to understand what risks you may face at work. Travel Avoid long distance travel (greater than 1 hour) in airplanes and cars for the first 6 weeks after surgery. If you must travel, you need to have a Doppler ultrasound done before you travel to rule out a blood clot in your legs. Follow-up You should have a follow-up appointment already scheduled 1-2 days after surgery. If not, please contact our office to make this appointment before you leave the hospital. When to call the office It is normal to have swelling and bruising in the limb that was operated on. This will improve with time. It is also normal to have fevers for the first 2 days after surgery. Reasons you should call your doctor include: Uncontrolled pain; Nausea, vomiting, or constipation that does not improve with medication; Fevers over 101.5, chills, sweats; Drainage or bleeding from the wound; Foul odor; Spreading areas of redness; Any other concerns Pending Studies at Discharge: No Stand-Alone Forms: Anesthesia/Sedation, Adult, [facility] Medications and DC Order Prescriptions: Continued fluoxetine 40 mg capsule 40 mg PO QAM Qty: 90 RF: 3 ascorbic acid (vitamin C) [Vitamin C] 1,000 mg Tablet 1 g PO QAM RF: 0 coQ10 (ubiquinol) 200 mg Capsule 400 mg PO QAM RF: 0 Centrum Silver Women 8 mg iron-400 mcg-300 mcg Tablet 1 tab PO QAM RF: 0 calcium phosphate-vitamin D3 [Citracal-D3 Gummies] 250 mg calcium- 500 unit Tablet,Chewable 2 tab PO QAM RF: 0 Advil PM 200-38 mg Tablet 2 cap PO HS PRN (Reason: Sleep) RF: 0 cholecalciferol (vitamin D3) 125 mcg (5,000 unit) capsule 125 mcg PO QAM RF: 0 Discharge Orders: Discharge Order (Routine); Ordered 04/12/21 Ordered By: Redd Snow/Other Patient Handouts: DVT Post Op Prevention Admission Data Admit Date/Time: 04/09/21 15:50 Attending Provider: Aram Schwartz Admit Provider: Aram Schwartz Primary Care Provider: Hermes Marc Other Providers: Kuldip Vinson ; Dave Anne Other Interventions: Discharge Summary Assessment (RN) Last Done: 04/12/21 12:06
== END 2021-04-12 15:24 | disposition home health service (06) ==
LOC: ASU 05:24 → 3E 05:24 → SUPCPDRO 15:50 → ASU 16:30 → 2N 04-11 05:20

== ENCOUNTER 2022-05-25 12:17 | Observation (INO) ==
--- NOTE | 2022-05-25 12:30 | Emergency Department Note ---
Impression & Plan Chest pain, Abnormal EKG ED Provider Note NAME: PARDEEP BRUSH AGE: 67 SEX: F : 1955 ARRIVES VIA: Ambulance INFORMANT: Patient, ED PROVIDER(S): Beni Minaya DO CHIEF COMPLAINT: Chest pain HPI: The patient is a 67-year-old female who presented to the emergency department for an evaluation of chest pain. The patient started having symptoms over the course the last few days. She mostly has cough and heaviness across her chest. She does have some dyspnea on exertion. She states that she went to the walk-in clinic at [place] today. She was noted to have a very abnormal EKG. She was treated with aspirin and nitroglycerin. At this time she states her pain is significantly improved. She still complains of a cough which is nonproductive for purulent sputum. She denies having any hemoptysis. She denies having any lower extremity swelling or pain. ROS: See above HPI for pertinent positives & negatives. A total of 10 systems reviewed and were otherwise negative. PAST MEDICAL HISTORY: See Below PAST SURGICAL HISTORY: See Below FAMILY HISTORY: See Below SOCIAL HISTORY: See Below HOME MEDICATIONS: See Below ALLERGIES: See Below VITALS: See Below PHYSICAL EXAMINATION: GENERAL: Patient is awake alert in no acute distress patient is resting comfortably and showing no signs of anxiety EYES: The conjunctivae are clear. The pupils are round and reactive. EARS, NOSE, MOUTH AND THROAT: The nose is without any evidence of any deformity. NECK: The neck is nontender and supple. RESPIRATORY: Diminished breath sounds are noted throughout. There is no tachypnea or conversational dyspnea. CARDIOVASCULAR: Regular rate and rhythm noted there no murmurs rubs or gallops normal S1 normal S2. GASTROINTESTINAL: The abdomen is soft. Abdomen is nontender. MUSCULOSKELETAL/EXTREMITIES: There is no evidence of gross deformity full range of motion is noted in the hips and shoulders. SKIN: There is no obvious evidence of any rash. There are no petechiae, pallor or cyanosis noted. NEUROLOGIC: Patient is awake alert and oriented x3 MEDICAL DECISION MAKING: Patient is a 67-year-old female who presented to the emergency department for an evaluation of chest pain. The patient describes anterior chest pain that she started experiencing this morning. She has had an upper respiratory tract infection including a cough. The patient was not tachycardic or hypoxic. I discussed the patient's laboratory and radiographic studies with her. I also discussed the limitations of the emergency department work-up for chest pain with her. She was found to have an abnormal EKG at the outpatient clinic prior to coming to the emergency department. She was given aspirin and nitroglycerin and the symptoms resolved. For this reason I discussed her condition with the on-call [facility] hospitalist group. They have agreed to evaluate the patient in the emergency department for further management and disposition. Triage Nursing notes reviewed. Prior medical records reviewed Vital Signs: reviewed and remarkable for no significant abnormalities Differential diagnosis: Cardiac ischemia, aortic dissection, pulmonary embolism, pneumothorax, pneumonia, pericarditis, myocarditis, esophageal rupture, GERD, cholecystitis, pancreatitis, musculoskeletal, as well as other pathologies. ER treatment provided: See below Diagnostics interpreted by me: ECG: EKG was obtained in the emergency department. My interpretation is normal sinus rhythm at [address] segment abnormalities are noted. There were no PVCs appreciated. This was compared to a tracing from April 10, 2021. No significant changes were noted. A prehospital EKG was obtained. My interpretation is normal sinus rhythm at 81 bpm. There is no ectopy. ST segment abnormalities were appreciated on this tracing as well. It compares favorably to the tracing obtained in the emergency department. An EKG from the outpatient clinic was reviewed. My interpretation is normal sinus rhythm at [address] segment depressions were noted in the inferior later al leads. This is increased compared to the tracing obtained in the emergency department. Cardiac Monitoring: An order was placed for continuous cardiac monitoring. The monitor shows a rate of 82 bpm with sinus rhythm. Laboratory studies: As stated above and show below. Imaging studies: See below. Radiographic imaging was reviewed by myself Consultation(s): I discussed this case with Cordell who is on for the [facility] hospitalist group. Past Med/Surg History Medical History Anxiety Depression Osteoarthritis Osteoarthritis of left hip Osteopenia Surgical History H/O laparoscopy R/T FERTILITY PROBLEMS History of section History of colonoscopy 2020 History of surgery on wrist LEFT/RT FX WRIST REPAIR History of tonsillectomy and adenoidectomy History of total right hip arthroplasty 12/06/19-Dr Schwartz Hx of abdominal surgery D/T ECTOPIC S/P total hip arthroplasty Uterine fibroid [place] teeth removed Family History Father Colon cancer Brother Polyp of sigmoid colon Mother CKD (chronic kidney disease) Sister Seizures Social History Smoking Status: Former smoker Tobacco Type: Cigarettes Cigarettes Per Day: 20; Second Hand Exposure: No; Hx Alcohol Use: No (Recovering alcoholic, 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) Hx Substance Use: No Preferred Language: Bulgarian Communication Ability: Effective Hearing Ability: Normal Paving Contractor Required: No Beliefs That Will Affect Care: None marital status: Current Living Situation: Spouse current occupational status: employed and retired current occupation: [employer] Feels Safe at Home: Yes Childhood Exposure to Second-Hand Smoke: No Diet Comment: healthy diet caffeine: Yes Dental Care, Regularly: Yes Physical Activity Frequency: Daily Seatbelt Use: always Sunscreen Use: Yes Assistive Devices: Walker Allergies Allergies Allergy/AdvReac Type Severity Reaction Status Date / Time med Allergy Intermediate nausea, Verified 05/25/22 14:22 headache Sulfa (Sulfonamide Allergy Intermediate nausea, Verified 05/25/22 14:22 Antibiotics) headache venlafaxine [From Effexor] AdvReac Intermediate difficulty Verified 05/25/22 14:22 concentrating, loss of focus Home Meds Home Medications Medication Instructions Recorded Confirmed ascorbic acid (vitamin C) 1,000 mg 1 g PO QAM 06/13/19 05/25/22 tablet (Vitamin C) multivit with 1 tab PO QAM 06/13/19 05/25/22 [id number] 8 mg iron-400 mcg-300 mcg tablet (Centrum Silver Women) cholecalciferol (vitamin D3) 125 125 mcg PO QAM 03/11/21 05/25/22 mcg (5,000 unit) capsule calcium citrate 250 mg 1 tab PO QAM 05/25/22 05/25/22 calcium-vitamin D3 5 mcg (200 unit) tablet Previous Rx's Medication Instructions Recorded fluoxetine 40 mg capsule 40 mg PO QAM #90 caps 09/23/21 Results & Data (ED) Vital Signs Vital Signs - 24 hr 05/25/22 12:23 05/25/22 12:25 05/25/22 12:25 Temperature 36.9 C 36.9 C Temperature Source Oral Pulse Rate 82 84 82 Pulse Rhythm Regular Pulse Strength Normal Respiratory Rate 17 18 Respiratory Effort / Characteristics Non-Labored Spontaneous Respiratory Depth Normal Respiratory Pattern Regular Blood Pressure 119/71 119/71 Blood Pressure Mean 87 87 Pulse Oximetry 94 93 Oxygen Delivery Method Room Air Room Air Sepsis Recent Fever Within 48 Hours No Sepsis New/Unexplained Change in Mental Status N/A Sepsis Action Taken by Nursing No Action Required 05/25/22 12:25 05/25/22 12:25 05/25/22 12:24 Temperature Temperature Source Pulse Rate 83 Pulse Rhythm Regular Pulse Strength Respiratory Rate 17 18 Respiratory Effort / Characteristics Non-Labored Spontaneous Non-Labored Spontaneous Respiratory Depth Normal Normal Respiratory Pattern Regular Blood Pressure Blood Pressure Mean Pulse Oximetry 93 92 Oxygen Delivery Method Room Air Room Air Room Air Sepsis Recent Fever Within 48 Hours Sepsis New/Unexplained Change in Mental Status Sepsis Action Taken by [facility] Medications Current Medication List: was personally reviewed by me Laboratory Data Attestation: I reviewed the patient's lab results. 05/25/22 12:02 05/25/22 12:02 Lab Results 05/25/22 05/25/22 05/25/22 Range/Units 12:02 12:02 12:02 WBC 6.03 (4.8-10.8) K/ul RBC 4.18 L (4.20-5.40) M/uL Hgb 13.1 (12.0-16.0) g/dl Hct 38.6 (37.0-47.0) % MCV 92.3 (80.0-100.0) fL MCH 31.3 (25.0-34.0) pg MCHC 33.9 (32.0-36.0) g/dL RDW Std Deviation 43.0 (36.4-46.3) fL RDW Coeff of Diana 12.7 (11.5-14.5) % Plt Count 246 (130-400) K/uL MPV 10.3 (9.4-12.4) fL Immature Gran % (Auto) 0.3 % Neut % (Auto) 64.9 % Lymph % (Auto) 21.4 % [place] % (Auto) 11.9 % Eos % (Auto) 0.8 % Baso % (Auto) 0.7 % Neut # (Auto) 3.91 (1.40-6.50) K/uL Lymph # (Auto) 1.29 (1.2-3.4) K/uL [place] # (Auto) 0.72 H (0.11-0.59) K/uL Eos # (Auto) 0.05 (0-0.50) K/uL Baso # (Auto) 0.04 (0-0.2) K/uL Immature Gran # (Auto) 0.02 (0.01-0.20) K/uL PT 10.4 (9.0-12.0) Seconds INR 1.0 (0.9-1.1) APTT 27.1 (21.0-31.0) Seconds PTT Ratio 1.0 D-Dimer 320 (0-500) ug/L FEU Sodium 136 (136-145) mmol/L Potassium 3.8 (3.5-5.1) mmol/L Chloride 103 (98-107) mmol/L Carbon Dioxide 27 (21-32) mmol/L Anion Gap 6 (3-11) BUN 19 (6-23) mg/dl Creatinine 0.54 L (0.6-1.2) mg/dl Est Cr Clr Drug Dosing 113.2 ml/min Est GFR ( Amer) 114.0 ml/min Est GFR (Non-Af Amer) 98.3 ml/min BUN/Creatinine Ratio 35.2 H (10-20) Glucose 109 H (70-99(Fasting)) mg/dl Calcium 8.3 L (8.5-10.1) mg/dl Total Bilirubin 0.6 (0.2-1.0) mg/dl AST 14 (13-39) U/L ALT 11 (7-52) U/L Alkaline Phosphatase 73 (34-104) U/L Troponin I High Sens 3.3 (0-14) pg/ml Total Protein 7.1 (6.0-8.3) gm/dl Albumin 4.1 (3.4-5.0) gm/dl Globulin 3.0 (2.5-4.0) gm/dl Albumin/Globulin Ratio 1.4 (0.9-2) Lipase 18 (11-82) U/L SARS-CoV-2 (PCR) (Negative) Influenza Type A (PCR) (Neg) Influenza Type B (PCR) (Neg) RSV (RT-PCR) (Neg) 05/25/22 Range/Units 12:40 WBC (4.8-10.8) K/ul RBC (4.20-5.40) M/uL Hgb (12.0-16.0) g/dl Hct (37.0-47.0) % MCV (80.0-100.0) fL MCH (25.0-34.0) pg MCHC (32.0-36.0) g/dL RDW Std Deviation (36.4-46.3) fL RDW Coeff of Diana (11.5-14.5) % Plt Count (130-400) K/uL MPV (9.4-12.4) fL Immature Gran % (Auto) % Neut % (Auto) % Lymph % (Auto) % [place] % (Auto) % Eos % (Auto) % Baso % (Auto) % Neut # (Auto) (1.40-6.50) K/uL Lymph # (Auto) (1.2-3.4) K/uL [place] # (Auto) (0.11-0.59) K/uL Eos # (Auto) (0-0.50) K/uL Baso # (Auto) (0-0.2) K/uL Immature Gran # (Auto) (0.01-0.20) K/uL PT (9.0-12.0) Seconds INR (0.9-1.1) APTT (21.0-31.0) Seconds PTT Ratio D-Dimer (0-500) ug/L FEU Sodium (136-145) mmol/L Potassium (3.5-5.1) mmol/L Chloride (98-107) mmol/L Carbon Dioxide (21-32) mmol/L Anion Gap (3-11) BUN (6-23) mg/dl Creatinine (0.6-1.2) mg/dl Est Cr Clr Drug Dosing ml/min Est GFR ( Amer) ml/min Est GFR (Non-Af Amer) ml/min BUN/Creatinine Ratio (10-20) Glucose (70-99(Fasting)) mg/dl Calcium (8.5-10.1) mg/dl Total Bilirubin (0.2-1.0) mg/dl AST (13-39) U/L ALT (7-52) U/L Alkaline Phosphatase (34-104) U/L Troponin I High Sens (0-14) pg/ml Total Protein (6.0-8.3) gm/dl Albumin (3.4-5.0) gm/dl Globulin (2.5-4.0) gm/dl Albumin/Globulin Ratio (0.9-2) Lipase (11-82) U/L SARS-CoV-2 (PCR) NEGATIVE (Negative) Influenza Type A (PCR) Negative (Neg) Influenza Type B (PCR) Negative (Neg) RSV (RT-PCR) Negative (Neg) Imaging Data Attestation: I personally reviewed and interpreted this imaging study as follows: My Impression: 1 view chest x-ray was obtained in the emergency department. My interpretation is no infiltrate, no free air, report below. Radiologist's Impression: Chest X-Ray 05/25/22 12:24 SINGLE VIEW CHEST CLINICAL HISTORY: Atypical chest pain FINDINGS: An AP, portable, upright chest radiograph is compared to study dated 11/30/2011 and correlated with chest CT dated 12/04/2021. The cardiomediastinal silhouette is top normal for projection noting atherosclerotic calcification of the thoracic aorta. Emphysema and chronic interstitial thickening is similar to previous. The lungs and pleural spaces are clear nothing bibasilar scarring/ate lectasis. No pneumothorax is seen. The skeletal structures are osteopenic. The bony thorax is grossly intact. IMPRESSION: Emphysematous change with no active disease in the chest. ACT 112: Negative or not required by law. Electronically signed by: Johan Giordano M.D. 05/25/2022 1:31 PM Discharge Plan Visit Data Chief Complaint: Cardiac Assessment Stated Complaint: CARDIAC ASSESSMENT ED Provider: Beni Minaya Discharge Problem: Chest pain, Abnormal EKG Patient Disposition: Being Evaluated by Hospitalist Forms Stand Alone Forms: My [facility] Prescriptions Prescriptions: No Action fluoxetine 40 mg capsule 40 mg PO QAM Qty: 90 3RF ascorbic acid (vitamin C) [Vitamin C] 1,000 mg Tablet 1 g PO QAM Centrum Silver Women 8 mg iron-400 mcg-300 mcg Tablet 1 tab PO QAM cholecalciferol (vitamin D3) 125 mcg (5,000 unit) capsule 125 mcg PO QAM calcium citrate-vitamin D3 [Citracal plus D] 250 mg-5 mcg (200 unit) Tablet 1 tab PO QAM Referrals Referrals: aPncho Moody MD [Primary Care Provider] -
[2022-05-25 12:42] LABS: Basophils # (auto) 0.04 K/uL (0-0.2); Basophils % (auto) 0.7 %; Eosinophils # (auto) 0.05 K/uL (0-0.50); Eosinophils % (auto) 0.8 %; Hematocrit (blood only) 38.6 % (37.0-47.0); Hemoglobin 13.1 g/dl (12.0-16.0); Immature Granulocytes # (auto) 0.02 K/uL (0.01-0.20); Immature Granulocytes % (auto) 0.3 %; Lymphocytes # (auto) 1.29 K/uL (1.2-3.4); Lymphocytes % (auto) 21.4 %; Mean Corpuscular Hemoglobin 31.3 pg (25.0-34.0); Mean Corpuscular Hgb Conc 33.9 g/dL (32.0-36.0); Mean Corpuscular Volume 92.3 fL (80.0-100.0); Mean Platelet Volume 10.3 fL (9.4-12.4); Monocytes # (auto) 0.72 K/uL (0.11-0.59); Monocytes % (auto) 11.9 %; Neutrophils # (auto) 3.91 K/uL (1.40-6.50); Neutrophils % (auto) 64.9 %; Platelet Count 246 K/uL (130-400); RDW Coefficient of Variation 12.7 % (11.5-14.5); Red Blood Count 4.18 M/uL (4.20-5.40); White Blood Count 6.03 K/ul (4.8-10.8)
[2022-05-25 13:03] LABS: D Dimer 320 ug/L FEU (0-500); Partial Thromboplastin Time 27.1 Seconds (21.0-31.0); Prothrombin Time 10.4 Seconds (9.0-12.0)
--- NOTE | 2022-05-25 13:04 | Electrocardiogram Report ---
Test Reason : Blood Pressure : / mmHG Vent. Rate : 081 BPM Atrial Rate : 081 BPM P-R Int : 130 ms QRS Dur : 082 ms QT Int : 374 ms P-R-T Axes : 061 068 077 degrees QTc Int : 434 ms Normal sinus rhythm Diffuse Minor Nonspecific T wave abnormality Abnormal ECG When compared with ECG of 10-APR-2021 11:52, No significant change was found Confirmed by Pablo Gutierrez ([id number]) on 05/25/2022 1:04:09 PM Referred By: Confirmed By:Pablo Gutierrez
[2022-05-25 13:08] LABS: Troponin I High Sensitivity 3.3 pg/ml (0-14)
[2022-05-25 13:23] LABS: Albumin Level 4.1 gm/dl (3.4-5.0); Bilirubin,Total 0.6 mg/dl (0.2-1.0); Calcium 8.3 mg/dl (8.5-10.1); Potassium 3.8 mmol/L (3.5-5.1)
[2022-05-25 13:30] LABS: Albumin Globulin Ratio 1.4 (0.9-2); BUN Creatinine Ratio 35.2 (10-20); Creatinine Clr Calc Pharmacy 113.2 ml/min; Est GFR (Non-African American) 98.3 ml/min; Total Protein 7.1 gm/dl (6.0-8.3)
--- NOTE | 2022-05-25 13:32 | XRay Report ---
SINGLE VIEW CHEST CLINICAL HISTORY: Atypical chest pain FINDINGS: An AP, portable, upright chest radiograph is compared to study dated 11/30/2011 and correlat ed with chest CT dated 12/04/2021. The cardiomediastinal silhouette is top normal for projection notin g atherosclerotic calcification of the thoracic aorta. Emphysema and chronic interstitial thickening is similar to previous. The lungs and pleural spaces are clear nothing bibasilar scarring/atelectasis . No pneumothorax is seen. The skeletal structures are osteopenic. The bony thorax is grossly intact. IMPRESSION: Emphysematous change with no active disease in the chest. ACT 112: Negative or not required by law. Electronically signed by: Johan Giordano M.D. 05/25/2022 1:31 PM
[2022-05-25 14:02] LABS: Influenza A virus by PCR Negative (Neg); Influenza B virus by PCR Negative (Neg); RSV by PCR Negative (Neg); SARS CoV2 RNA(COVID-19) Ceph NEGATIVE (Negative)
--- NOTE | 2022-05-25 14:42 | History & Physical Report ---
Date of Service May 25, 2022 Assessment & Plan (1) Chest pain: Plan: -Admit to med/tele -The patient is currently afebrile, hemodynamically stable, and stable on RA -The patient was experiencing chest pressure/discomfort since yesterday and went to Acute Care this afternoon, was noted to have ST depression and T-wave inversion in the anterolateral leads -S/P 324 mg PO aspirin and one dose of Nitroglycerin prior to arrival with relief of her chest pressure, currently asymptomatic -Repeat ECG here is without ST depressions but still with T-wave inversion, initial high sensitivity trop WNL -STAT repeat trop ordered, continue to monitor on tele, TTE ordered, will trend high sen trop q6h overnight -Consult cardiology with any increases in troponin and return of her chest discomfort -BL SCD's and Sub-Q lovenox for DVT PPX -AM CBC, BMP, and Mag (2) URI (upper respiratory infection): Plan: -Patient noted to have sinus congestion and chest congestion with non-productive cough since 05/21 -WBC WNL, no consolidations on CXR, Covid/Influenza/RSV negative -Likely another viral respiratory virus at this time -Incentive spirometry, flutter therapy, prn DuoNeb, scheduled Mucinex, prn s tobias nasal spray (3) Anxiety: Plan: -Continue fluoxetine (4) Depression: Plan: -Continue fluoxetine (5) Hyperlipidemia: Plan: -Last cholesterol level on 10/16/21 was elevated at 220, triglycerides, LDL, HDL WNL -Patient is not currently on a statin, will repeat fasting lipid panel in the am for further assessment Plan The patient was discussed with Dr. Dwyer at the time of the admission History of Present Illness Chief Complaint: Chest pain Primary Care Provider: Pancho Moody MD Libia is a 67 year old female with a PMH significant for anxiety , depression, tobacco abuse, hyperlipidemia, S/P left total hip arthroplasty on 03/2021 who presented to the [facility] ED on 05/25/22 after being sent from an Acute Care Clinic for abnormal ECG. Per the ED staff, the patient has been dealing with a URI for , she reportedly experienced chest pain today and went to an Acute Care Clinic in [place]. While there she reportedly had an ECG showing ST depression in T- wave inversions. She was given nitroglycerine and aspirin prior to EMS arrival and her symptoms resolved. In the ED the patient was found to be afebrile, hemodynamically stable, and stable on RA. Labs including CBC, CMP, initial high sensitivity trop, and Covid/influenza/RSV were negative/WNL, other than a calcium level of 8.3. Her chest xray was read as Emphysematous change with no active disease in the chest. Her ECG showed NSR with diffuse, nonspecific T-wave abnormalities but no ST segment changes. We were consulted for assessment and determination for the need for admission and inpatient stress test. At the time of the exam the patient was lying comfortably in bed in no acute distress with her sitting bedside. She states that she started to develop sinus congestion on 05/21/22, this progressed to congestion in her chest with a non-productive cough. On 05/22/22 she developed chest pressure/the sensation that someone was sitting on her chest while at rest. The pain did not radiate anywhere and she was without acute SOB and diaphoresis. She did not take any medication her chest discomfort. She went to the acute care clinic today as she was unable to get a PCP appointment and they found her to have ST depressions and T-wave inversions in the anterolateral leads. The ED staff provided the ECG and she did have ST depressions and T-wave inversions in the anterolateral leads on examination. At the time of my exam the patient is currently chest discomfort free. She is still congested and has a non-productive cough. She confirms that her only prescribed medication is Fluoxetine. She is in agreement with staying for further monitoring and evaluation. She denies recent fever, chills, changes in vision, hearing, taste, smell, chest pain, SOB, abd pain, nausea, vomiting, diarrhea, dysuria, hematuria, LE swelling and recent trauma. She wishes to be a full code and for her to make decisions for her if she could not make them herself. She denies a previous family history of cardiac disease or sudden cardiac at or before the age of 50. Please refer to Dr. Dwyer's attestation for any changes to the treatment plan Allergies Allergy/AdvReac Type Severity Reaction Status Date / Time med Allergy Intermediate nausea, Verified 05/25/22 14:22 headache Sulfa (Sulfonamide Allergy Intermediate nausea, Verified 05/25/22 14:22 Antibiotics) headache venlafaxine [From Effexor] AdvReac Intermediate difficulty Verified 05/25/22 14:22 concentrating, loss of focus Home Medications Medication Instructions Recorded Confirmed Type ascorbic acid (vitamin C) 1,000 mg 1 g PO QAM 06/13/19 05/25/22 History tablet (Vitamin C) multivit with 1 tab PO QAM 06/13/19 05/25/22 History cypbyxay-xujw-HZ-lutein 8 mg iron-400 mcg-300 mcg tablet (Centrum Silver Women) cholecalciferol (vitamin D3) 125 125 mcg PO QAM 03/11/21 05/25/22 History mcg (5,000 unit) capsule fluoxetine 40 mg capsule 40 mg PO QAM #90 caps 09/23/21 05/25/22 Rx calcium citrate 250 mg 1 tab PO QAM 05/25/22 05/25/22 History calcium-vitamin D3 5 mcg (200 unit) tablet Past Med/Surg History Medical History Anxiety Depression Osteoarthritis Osteoarthritis of left hip Osteopenia Surgical History H/O laparoscopy R/T FERTILITY PROBLEMS History of section History of colonoscopy 2020 History of surgery on wrist LEFT/RT FX WRIST REPAIR History of tonsillectomy and adenoidectomy History of total right hip arthroplasty 12/06/19-Dr Schwartz Hx of abdominal surgery D/T ECTOPIC S/P total hip arthroplasty Uterine fibroid [place] teeth removed Family History Father Colon cancer Brother Polyp of sigmoid colon Mother CKD (chronic kidney disease) Sister Seizures Social History Smoking Status: Former smoker Tobacco Type: Cigarettes Cigarettes Per Day: 20; Second Hand Exposure: No; Hx Alcohol Use: No (Recovering alcoholic, 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) Hx Substance Use: No Preferred Language: Bulgarian Communication Ability: Effective Hearing Ability: Normal Peripheral Vascular Tech Required: No Beliefs That Will Affect Care: None marital status: Current Living Situation: Spouse current occupational status: employed and retired current occupation: [employer] Feels Safe at Home: Yes Childhood Exposure to Second-Hand Smoke: No Diet Comment: healthy diet caffeine: Yes Dental Care, Regularly: Yes Physical Activity Frequency: Daily Seatbelt Use: always Sunscreen Use: Yes Assistive Devices: Walker Review of Systems Review of Systems: Denies current fever, chills, headache, changes in vision, hearing, taste, and smell, chest pain, SOB, abdominal pain, nausea, vomiting, diarrhea, hematemesis, melena, dysuria, hematuria, and recent falls. All systems have been reviewed and are otherwise negative. Physical Exam Physical Exam: Physical Exam: General: In no acute distress, stated age, well-nourished, good hygiene HEENT: Normocephalic, atraumatic, no scleral icterus, pupils around round, symmetrical, and reactive to light, moist mucus membranes, trachea midline, no thyromegaly Chest/Pulm: No respiratory distress, symmetrical chest expansion, scattered rhonchi and wheezing throughout Cardiac: RRR, no murmurs noted Abdomen: Negative for ascites and bruising, normoactive bowel sounds, soft, non-tender to palpation throughout Musculoskeletal: Symmetrical and without signs of acute trauma, upper and lower extremities with full ROM, no atrophy, spasticity, or flaccidity Extremities: Radial, dorsalis pedis, and posterior tibial pulses are intact and symmetrical, no edema noted in the BL LE's Skin: Warm, dry, no rashes , lesions, or scars noted Neuro: Alert and oriented to person, place, month, year, and president, no focal defects, CN II-XII tested and intact, no tremors noted Psych: No acute distress, calm and cooperative during the exam Results & Data Results & Data ([facility]) Vital Signs (Past 12 Hours) Vital Signs Temp Pulse Resp BP Pulse Ox O2 Del Method 05/25/22 12:24 83 18 92 Room Air 05/25/22 12:25 Room Air 05/25/22 12:25 17 93 Room Air 05/25/22 12:25 36.9 C 82 18 119/71 93 Room Air 05/25/22 12:25 36.9 C 84 17 119/71 94 Room Air 05/25/22 12:23 82 Laboratory Results Abnormal lab results 05/25/22 05/25/22 Range/Units 12:02 12:02 RBC 4.18 L (4.20-5.40) M/uL Nicholas # (Auto) 0.72 H (0.11-0.59) K/uL Creatinine 0.54 L (0.6-1.2) mg/dl BUN/Creatinine Ratio 35.2 H (10-20) Glucose 109 H (70-99(Fasting)) mg/dl Calcium 8.3 L (8.5-10.1) mg/dl Diagnostic Findings Chest X-Ray 05/25/22 12:24 SINGLE VIEW CHEST CLINICAL HISTORY: Atypical chest pain FINDINGS: An AP, portable, upright chest radiograph is compared to study dated 11/30/2011 and correlated with chest CT dated 12/04/2021. The cardiomediastinal silhouette is top normal for projection noting atherosclerotic calcification of the thoracic aorta. Emphysema and chronic interstitial thickening is similar to previous. The lungs and pleural spaces are clear nothing bibasilar scarring/atelectasis. No pneumothorax is seen. The skeletal structures are osteopenic. The bony thorax is grossly intact. IMPRESSION: Emphysematous change with no active disease in the chest. ACT 112: Negative or not required by law. Electronically signed by: Johan Giordano M.D. 05/25/2022 1:31 PM ECG Additional Comments: Normal sinus rhythm Diffuse Minor Nonspecific T wave abnormality Abnormal ECG When compared with ECG of 10-APR-2021 11:52, No significant change was found Confirmed by Pablo Gutierrez ([id number]) on 05/25/2022 1:04:09 PM Code Status & VTE Plan Code Status FUll code VTE Prophylaxis Plan VTE Prophylaxis will be ordered: Yes Supervising Physician Co-Signing Physician Notes Patient seen and examined, chart reviewed, case discussed with [] and I agree with the assessment and plan as above except as otherwise noted Labs and images reviewed Libia is a 67-year-old female with history of depression, tobacco abuse, hyperlipidemia, anxiety, depression who presented for chest discomfort. ST depression/T wave inversions in anterior leads, admitted for cardiac eval. Repeat EKG is without ST depressions. Troponin initial and high-sensitivity x2 are normal. We will follow high-sensitivity troponins overnight, obtain echo, follow with cardiology? Stress test based on dynamic ischemic changes. At time of assessment heart rate is regular, lungs are clear, and patient is chest pain-free. Agree with recommendations of management above. PG Care Time/CCT Total # of Minutes Spent Total Time Spent with Patient: Total time spent is greater than 50% in coordination of care (as documented) at patient's floor/unit and/or counseling patient: C[place] [address] INT INP/OBS CARE 3/75MIN Patient Type Established Medical Decision Making High Complexity Diagnoses Chest pain R07.9 Chest pain type: unspecified URI (upper respiratory infection) J06.9 Anxiety F41.9 Depression F32.9 Hyperlipidemia E78.5 (1) Chest pain Chest pain type: unspecified Qualified Code(s): R07.9 - Chest pain, unspecified
[2022-05-25] MEDS ORDERED: ALBUT/IPRATROP 3MG/0.5MG NEB 3 ML VIAL NEB PRN (14:51)
[2022-05-25] MEDS: ALBUT/IPRATROP 3MG/0.5MG NEB 3 ML VIAL NEB SCH ×2 (15:22→19:45)
--- NOTE | 2022-05-25 15:41 | XCELERA ---
[id number] \\[id number]_[id number]}___[id number]
[2022-05-25] MEDS ORDERED: SODIUM CHLORIDE 0.65% NA SOLN 45 ML (OCEAN) PRN (15:50)
[2022-05-25] MEDS ORDERED: ACETAMINOPHEN 325 MG TAB PO PRN (17:47)
[2022-05-25] MEDS ORDERED: ENOXAPARIN INJ 40 MG/0.4 ML SYR SQ SCH (19:00)
[2022-05-25] MEDS: guaiFENesin 600 MG TABCR PO SCH (20:24)
[2022-05-26 06:38] LABS: Hematocrit (blood only) 39.2 % (37.0-47.0); Hemoglobin 13.3 g/dl (12.0-16.0); Mean Corpuscular Hemoglobin 31.4 pg (25.0-34.0); Mean Corpuscular Hgb Conc 33.9 g/dL (32.0-36.0); Mean Corpuscular Volume 92.7 fL (80.0-100.0); Mean Platelet Volume 9.9 fL (9.4-12.4); Platelet Count 227 K/uL (130-400); RDW Coefficient of Variation 12.5 % (11.5-14.5); RDW Standard Deviation 42.5 fL (36.4-46.3); Red Blood Count 4.23 M/uL (4.20-5.40); White Blood Count 4.76 K/ul (4.8-10.8)
[2022-05-26 06:53] LABS: BUN Creatinine Ratio 23.4 (10-20); Calcium 9.3 mg/dl (8.5-10.1); Chol HDL Ratio 3.9 (0-5); Creatinine Clr Calc Pharmacy 94.2 ml/min; Est GFR (African American) 107.8 ml/min; Magnesium 2.1 mg/dl (1.7-2.4); Potassium 3.9 mmol/L (3.5-5.1)
[2022-05-26] MEDS: ALBUT/IPRATROP 3MG/0.5MG NEB 3 ML VIAL NEB SCH (06:59)
[2022-05-26] MEDS ORDERED: FLUoxetine HCL 20 MG CAP PO SCH (09:00)
[2022-05-26] MEDS: guaiFENesin 600 MG TABCR PO SCH (09:14)
--- NOTE | 2022-05-26 15:19 | Discharge Summary ---
Date of Service May 26, 2022 Admission HPI Per Admitting Provider Libia is a 67 year old female with a PMH significant for anxiety, depression, tobacco abuse, hyperlipidemia, S/P left total hip arthroplasty on 03/2021 who presented to the [facility] ED on 05/25/22 after being sent from an Acute Care Clinic for abnormal ECG. Per the ED staff, the patient has been dealing with a URI for , she reportedly experienced chest pain today and went to an Acute Care Clinic in [place]. While there she reportedly had an ECG showing ST depression in T- wave inversions. She was given nitroglycerine and aspirin prior to EMS arrival and her symptoms resolved. In the ED the patient was found to be afebrile, hemodynamically stable, and stable on RA. Labs including CBC, CMP, initial high sensitivity trop, and Covid/influenza/RSV were negative/WNL, other than a calcium level of 8.3. Her chest xray was read as Emphysematous change with no active disease in the chest. Her ECG showed NSR with diffuse, nonspecific T-wave abnormalities bu t no ST segment changes. We were consulted for assessment and determination for the need for admission and inpatient stress test. At the time of the exam the patient was lying comfortably in bed in no acute distress with her sitting bedside. She states that she started to develop sinus congestion on 05/21/22, this progressed to congestion in her chest with a non-productive cough. On 05/22/22 she developed chest pressure/the sensation that someone was sitting on her chest while at rest. The pain did not radiate anywhere and she was without acute SOB and diaphoresis. She did not take any medication her chest discomfort. She went to the acute care clinic today as she was unable to get a PCP appointment and they found her to have ST depressions and T-wave inversions in the anterolateral leads. The ED staff provided the ECG and she did have ST depressions and T-wave inversions in the anterolateral leads on examination. At the time of my exam the patient is currently chest discomfort free. She is still congested and has a non-productive cough. She confirms that her only prescribed medication is Fluoxetine. She is in agreement with staying for further monitoring and evaluation. She denies recent fever, chills, changes in vision, hearing, taste, smell, chest pain, SOB, abd pain, nausea, vomiting, diarrhea, dysuria, hematuria, LE swelling and recent trauma. She wishes to be a full code and for her to make decisions for her if she could not make them herself. She denies a previous family history of cardiac disease or sudden cardiac at or before the age of 50. Please refer to Dr. Dwyer's attestation for any changes to the treatment plan Principal Diagnosis Atypical chest pain Negative troponins x5 Bronchitis Discharge Exam Patient is a tight cough in her hospital room is nonproductive. Resting echo without regional wall motion abnormalities serology reviewed and stable. Discharge Data Allergies Allergy/AdvReac Type Severity Reaction Status Date / Time med Allergy Intermediate nausea, Verified 05/25/22 14:22 headache Sulfa (Sulfonamide Allergy Intermediate nausea, Verified 05/25/22 14:22 Antibiotics) headache venlafaxine [From Effexor] AdvReac Intermediate difficulty Verified 05/25/22 14:22 concentrating, loss of focus Consultations 05/25/22 14:27 ED Decision to Admit Stat Hospital Course (1) Chest pain: Acute self-limited patient chest pain is associate with an upper respiratory infection. She has had 5 negative high sensitive troponins. She did have some equivocal ST changes on her EKG which she says she was told about years ago when she had preoperative evaluation for hip replacements. Patient had no significant chest discomfort while in the hospital. Resting echocardiogram is unremarkable. Patient underwent treadmill stress echocardiogram today but results were not available at time of discharge Patient is agreeable to discharge I told her I would phone her with the results. Her current primary care provider is phoned in Augmentin prednisone and albuterol which she will hand picker at [facility] pharmacy. (2) URI (upper respiratory infection): (3) Anxiety: Chronic stable-Continue fluoxetine (4) Depression: Chronic stable-Continue fluoxetine (5) Hyperlipidemia: Chronic stable-Last cholesterol level on 10/16/21 was elevated at 220, triglycerides, LDL, HDL WNL -Patient is not currently on a statin, will repeat fasting lipid panel in the am for further assessment Total Time Total Time Spent Total Time Spent (In Minutes): It required greater than 30 minutes to prepare this patient for discharge Discharge Plan Discharge Items Patient Disposition: Home - Self-Care Reason For Visit: CARDIAC ASSESSMENT Discharge Diagnosis: negative cardiac enzymes probable bronchitis Activity: Per Instructions section Activity Comment: rest and recover Non-emergency contact: Primary Care Provider Call non-emergency contact if: your symptoms worsen Follow-up/Referrals: Pancho Moody MD [Primary Care Provider] - Diet: Regular Addtl Attending Provider Instructions: please rest and recover take the Rx that Dr Reagan office has called in, consider over the counter mucinex meds he called in include Augmentin-antibiotic prednisone tapering dose albuterol inhaler please call to make a follow up appointment your formal read of your stress test is not completed, I will call with your results when available Pending Studies at Discharge: Yes (stress test read) Stand-Alone Forms: My [facility], Smoking Cessation Medications and DC Order Prescriptions: Continued fluoxetine 40 mg capsule 40 mg PO QAM Qty: 90 3RF ascorbic acid (vitamin C) [Vitamin C] 1,000 mg Tablet 1 g PO QAM Centrum Silver Women 8 mg iron-400 mcg-300 mcg Tablet 1 tab PO QAM cholecalciferol (vitamin D3) 125 mcg (5,000 unit) capsule 125 mcg PO QAM calcium citrate-vitamin D3 [Citracal plus D] 250 mg-5 mcg (200 unit) Tablet 1 tab PO QAM Discharge Orders: Discharge Order (Routine); Ordered 05/26/22 Ordered By: Hermes Marc Admission Data Admit Date/Time: 05/25/22 14:47 Attending Provider: Hermes Marc Admit Provider: Aram Dwyer Primary Care Provider: Pancho Moody Other Providers: Aram Dwyer Coding Level of Care Code 76559 INP/OBS DISCH >30 MIN Diagnoses Chest pain R07.9 Chest pain type: unspecified URI (upper respiratory infection) J06.9 Anxiety F41.9 Depression F32.9 Hyperlipidemia E78.5
[2022-05-26 16:17] VITALS: BP 115/78; PULSE 78; TEMP 98.2; O2SAT 98
--- NOTE | 2022-05-26 17:44 | XCELERA ---
[id number]_[id number]}___[id number]
== END 2022-05-26 16:55 | disposition home or self-care (01) ==
LOC: ED 12:17 → 2N 12:17 → SUATTDRO 14:47 → 2N 17:45